=== PATIENT | female | born 1955 | race Caucasian/White ===

== ENCOUNTER 2016-12-30 10:24 | Emergency (ER) | payer MEDICARE ==
[~2016-12-30] VITALS: Ht 170.2 cm; Wt 99.8 kg
[~2016-12-30 10:24] MED LIST: HYDR25TA4 PO
--- NOTE | 2016-12-30 12:27 | ED Chest Pain ---
General Chief Complaint: Chest Pain Stated Complaint: N/V, ARM PAIN, CHEST DISCOMFORT A MONTH AGO Nursing Triage Note: pt reports cp/pressure and "body inflammation" on and off for one month. Pt reports recently she has become more soa and fatigued. Pt also reports l arm and neck pain this am. Pt states she does not take her blood pressure medication regularly. Nursing Sepsis Screen: No Definite Risk History of Present Illness Time seen by provider: 12:25 Initial Comments Patient complains of general lysed myalgias and arthralgias. She reports occasional left-sided neck pain. More recently she is noted fatigue and shortness of air. Timing/Duration: intermittent Severity/Quality: mild ASA po SCHOLARSHIP COUNSELOR: No Associated Symptoms: fatigue, shortness of breath Allergies and Home Medications Allergies Coded Allergies: No Known Drug Allergies (Verified , 02/19/15) Home Medications Hydrochlorothiazide 25 Mg Tablet, 25 MG PO DAILY, (Reported) Review of Systems Constitutional: no symptoms reported, see HPI EENTM: No Symptoms Reported, See HPI Respiratory: See HPI, SOA With Exertion, Denies SOA at Rest Cardiovascular: See HPI, Chest Pain Gastrointestinal: No Symptoms Reported, See HPI Genitourinary: No Symptoms Reported, See HPI Musculoskeletal: see HPI, joint pain (generalized), muscle pain Skin: no symptoms reported, see HPI Psychiatric/Neurological: No Symptoms Reported, See HPI Endocrine: No Symptoms Reported, See HPI Hematologic/Lymphatic: No Symptoms Reported, See HPI All Other Systems Reviewed Negative Unless Noted: Yes Past Mrsywzh-Pvuser-Mkrpvj Hx Patient Social History Alcohol Use: Denies Use Recreational Drug Use: No Smoking Status: Former Smoker Recent Foreign Travel: No Contact w/Someone Who Travel: No Recent Infectious Disease Expo: No Recent Hopitalizations: No Seasonal Allergies Seasonal Allergies: No Respiratory Hx Respiratory Disorders: No Cardiovascular Hx Cardiac Disorders: No Cardiac Disorders: Chronic Edema/Swelling, Hypertension Neurological Hx Neurological Disorders: No Gastrointestinal Hx Gastrointestinal Disorders: No Musculoskeletal Hx Musculoskeletal Disorders: Yes (ARTHRITIS) Endocrine Hx Endocrine Disorders: No Reviewed Nursing Assessment Reviewed/Agree w Nursing PMH: Yes Physical Exam Vital Signs Vital Sign - Last 12Hours 12/30/16 12/30/16 12:04 12:35 Temp 97.9 Pulse 61 Resp 18 B/P (MAP) 167/89 Pulse Ox 98 O2 Delivery Room Air Capillary Refill : Less Than 3 Seconds General Appearance: No Apparent Distress, WD/WN HEENT: PERRL/EOMI, TMs Normal, Normal ENT Inspection, Pharynx Normal Neck: Full Range of Motion, Normal Inspection, Non Tender, Supple Respiratory: Chest Non Tender, Lungs Clear, Normal Breath Sounds Cardiovascular: Regular Rate, Rhythm, No Edema, No Murmur, Normal Peripheral Pulses Gastrointestinal: Normal Bowel Sounds, Non Tender, Soft Extremity: Normal Capillary Refill, Normal Inspection, Normal Range of Motion, No Calf Tenderness, No Pedal Edema Neurologic/Psychiatric: Alert, Oriented x3, No Motor/Sensory Deficits, Normal Mood/Affect Skin: Normal Color, Warm/Dry Progress/Results/Core Measures Results/Orders Lab Results Laboratory Tests Test 12/30/16 12:46 Range/Units White Blood Count 7.1 4.3-11.0 10^3/uL Red Blood Count 4.76 4.35-5.85 10^6/uL Hemoglobin 14.7 11.5-16.0 G/DL Hematocrit 42 35-52 % Mean Corpuscular Volume 88 80-99 FL Mean Corpuscular Hemoglobin 31 25-34 PG Mean Corpuscular Hemoglobin Concent 35 32-36 G/DL Red Cell Distribution Width 12.7 10.0-14.5 % Platelet Count 234 130-400 10^3/uL Mean Platelet Volume 9.6 7.4-10.4 FL Neutrophils (%) (Auto) 66 42-75 % Lymphocytes (%) (Auto) 25 12-44 % Monocytes (%) (Auto) 6 0-12 % Eosinophils (%) (Auto) 2 0-10 % Basophils (%) (Auto) 1 0-10 % Neutrophils # (Auto) 4.7 1.8-7.8 X 10^3 Lymphocytes # (Auto) 1.8 1.0-4.0 X 10^3 Monocytes # (Auto) 0.4 0.0-1.0 X 10^3 Eosinophils # (Auto) 0.2 0.0-0.3 10^3/uL Basophils # (Auto) 0.1 0.0-0.1 10^3/uL Prothrombin Time 11.9 L 12.2-14.7 SEC INR Comment 0.9 0.8-1.4 Activated Partial Thromboplast Time 28 24-35 SEC Sodium Level 140 135-145 MMOL/L Potassium Level 3.9 3.6-5.0 MMOL/L Chloride Level 106 98-107 MMOL/L Carbon Dioxide Level 26 21-32 MMOL/L Anion Gap 8 5-14 MMOL/L Blood Urea Nitrogen 16 7-18 MG/DL Creatinine 0.83 0.60-1.30 MG/DL Estimat Glomerular Filtration Rate > 60 BUN/Creatinine Ratio 19 Glucose Level 124 H 70-105 MG/DL Calcium Level 9.6 8.5-10.1 MG/DL Magnesium Level 2.4 1.8-2.4 MG/DL Total Bilirubin 0.4 0.1-1.0 MG/DL Aspartate Amino Transf (AST/SGOT) 21 5-34 U/L Alanine Aminotransferase (ALT/SGPT) 22 0-55 U/L Alkaline Phosphatase 70 40-136 U/L Myoglobin 34.6 10.0-92.0 NG/ML Troponin I < 0.30 <0.30 NG/ML Total Protein 7.6 6.4-8.2 GM/DL Albumin 4.4 3.2-4.5 GM/DL My Orders Orders - ROCHELLE HERRERA Cbc With Automated Diff (12/30/16 12:17) Magnesium (12/30/16 12:17) Chest 1 View, Ap/Pa Only (12/30/16 12:17) Ekg Tracing (12/30/16 12:17) Cardiac Profile 1 (12/30/16 12:17) Comprehensive Metabolic Panel (12/30/16 12:17) Myoglobin Serum (12/30/16 12:17) Protime With Inr (12/30/16 12:17) Partial Thromboplastin Time (12/30/16 12:17) Aspirin Chewable Tablet (Baby Aspirin Ch (12/30/16 12:30) Saline Lock/Iv-Start (12/30/16 12:17) Ondansetron Injection (Zofran Injectio (12/30/16 12:30) Naproxen Tablet (Naprosyn Tablet) (12/30/16 13:09) Medications Given in ED Current Medications Medications Dose Ordered Sig/Mohamud Route Start Time Stop Time Status Last Admin Dose Admin Aspirin 324 mg ONCE ONCE PO 12/30/16 12:30 12/30/16 12:31 DC 12/30/16 12:31 324 MG Ondansetron HCl 4 mg ONCE ONCE IVP 12/30/16 12:30 12/30/16 12:31 DC 12/30/16 12:32 4 MG Vital Signs/I&O Vital Sign - Last 12Hours 12/30/16 12/30/16 12/30/16 12:04 12:35 14:01 Temp 97.9 97.9 Pulse 61 58 Resp 18 18 B/P (MAP) 167/89 Pulse Ox 98 99 O2 Delivery Room Air Room Air Blood Pressure Mean: 115 Progress Note : Time: 12:25 Progress Note Initial evaluation completed, EKG essentially normal. Aspirin 324 mg chewable given. 1250 labs all essentially normal hemoglobin 14.7, hematocrit 42, troponin less than 0.30. Zofran 4 mg IV and nausea. 1300 patient reports nausea is improved. Like to try NSAID, Naproxen 500 mg by mouth 1345 patient reports to be feeling much better. Blood pressure has improved. Discussed plans for discharge to home. Patient agreed with this treatment plan. ECG Initial ECG Impression Date: Dec 30, 2016 Initial ECG Impression Time: 11:46 Initial ECG Rate: 56 Initial ECG Rhythm: Normal Sinus Initial ECG Intervals: Normal Initial ECG Intervals NE 216, QRSD 96, QT 444, QTc 429. Leighton P 44, QRS 50, T 2 Initial ECG Impression: Normal Initial ECG Comparisson: No Previous ECG Available Comment EKG reviewed with Dr. Hamm who agreed with interpretation. Diagnostic Imaging Diagonstic Imaging: Xray Plain Films/CT/US/NM/MRI: chest Comments NAME: NAYAN KIDD [facility] REC#: [id number] PT STATUS: DEP ER : 1955 PHYSICIAN: ROCHELLE HERRERA ADMIT DATE: 12/30/16/ER Signed Date of Exam: 12/30/16 CHEST 1 VIEW, AP/PA ONLY EXAMINATION: Portable upright radiograph of the chest. INDICATION: Left arm and leg weakness and numbness. Chest pain. FINDINGS: The lungs are hyperinflated. The heart size is normal. No effusion or pneumothorax. The mediastinum and christian appear unremarkable. IMPRESSION: Hyperinflated clear lungs. Dictated by: Dictated on workstation # [id number] Dict: 12/30/16 1258 Trans: 12/30/16 1558 Interpreted by: ENEIDA ODEN MD Electronically signed by: ENEIDA ODEN MD 12/30/16 1558 Departure Impression Impression: Primary Impression: Hypertension Qualified Codes: I10 - Essential (primary) hypertension Additional Impression: Myalgia Disposition: HOME, SELF-CARE Condition: Improved Departure-Patient Inst. [facility] Primary Care Physician Patient Instructions: High Blood Pressure (DC), Muscle and Bone Pain (DC) Add. Discharge Instructions: Follow-up with Kristy Santacruz APRN for continued symptoms and to discuss changes with blood pressure medication. Use Aleve 2 tablets twice a day with food for general inflammation, joint pain and discomfort. Activity as tolerated. Return to emergency department for chest pain, shortness of breath, or other concerns. All discharge instructions reviewed with patient and/or family. Voiced understanding. Copy Copies To 1: EVANGELIST TRUONG MD, AMY ARNP Dec 30, 2016 12:27
[2016-12-30] MEDS ORDERED: ONDANSETRON 4 MG/2 ML (SDV) Z0FRAN IVP ONE (12:30)
[2016-12-30] MEDS ORDERED: ASPIRIN 81 MG CHEW (CHILDREN'S ASA) PO ONE (12:30)
[2016-12-30 13:03] LABS: INR 0.9 (0.8-1.4); PROTHROMBIN TIME PATIENT 11.9 SEC (12.2-14.7)
--- NOTE | 2016-12-30 13:03 | Diagnostic Imaging Report ---
EXAMINATION: Portable upright radiograph of the chest. INDICATION: Left arm and leg weakness and numbness. Chest pain. FINDINGS: The lungs are hyperinflated. The heart size is normal. No effusion or pneumothorax. The mediastinum and christian appear unremarkable. IMPRESSION: Hyperinflated clear lungs. Dictated by: Dictated on workstation # [id number]
[2016-12-30] MEDS ORDERED: NAPROXEN 250 MG (NAPROSYN) TABLET PO STA (13:09)
[2016-12-30 13:12] LABS: ALANINE AMINOTRANSFERASE 22 U/L (0-55); ALBUMIN 4.4 GM/DL (3.2-4.5); ANION GAP 8 MMOL/L (5-14); ASPARTATE AMINO TRANSFERASE 21 U/L (5-34); BILIRUBIN,TOTAL 0.4 MG/DL (0.1-1.0); BLOOD UREA NITROGEN 16 MG/DL (7-18); BUN/CREATININE RATIO 19; CALCIUM 9.6 MG/DL (8.5-10.1); CARBON DIOXIDE 26 MMOL/L (21-32); CHLORIDE 106 MMOL/L (98-107); CREATININE SERUM 0.83 MG/DL (0.60-1.30); GFR ESTIMATED > 60; GLUCOSE 124 MG/DL (70-105); MAGNESIUM 2.4 MG/DL (1.8-2.4); POTASSIUM 3.9 MMOL/L (3.6-5.0); SODIUM 140 MMOL/L (135-145); TOTAL PROTEIN 7.6 GM/DL (6.4-8.2)
[2016-12-30 13:13] LABS: BASOPHILS # (AUTO) 0.1 10^3/uL (0.0-0.1); BASOPHILS % (AUTO) 1 % (0-10); EOSINOPHILS # (AUTO) 0.2 10^3/uL (0.0-0.3); EOSINOPHILS % (AUTO) 2 % (0-10); LYMPHOCYTES # (AUTO) 1.8 X 10^3 (1.0-4.0); LYMPHOCYTES % (AUTO) 25 % (12-44); MEAN CORPUSCULAR HEMOGLOBIN 31 PG (25-34); MEAN CORPUSCULAR HGB CONC 35 G/DL (32-36); MEAN CORPUSCULAR VOLUME 88 FL (80-99); MEAN PLATELET VOLUME 9.6 FL (7.4-10.4); MONOCYTES # (AUTO) 0.4 X 10^3 (0.0-1.0); MONOCYTES % (AUTO) 6 % (0-12); NEUTROPHILS # (AUTO) 4.7 X 10^3 (1.8-7.8); NEUTROPHILS % (AUTO) 66 % (42-75); PLATELET COUNT 234 10^3/uL (130-400); RED BLOOD COUNT 4.76 10^6/uL (4.35-5.85); RED CELL DISTRIBUTION WIDTH 12.7 % (10.0-14.5); WHITE BLOOD COUNT 7.1 10^3/uL (4.3-11.0)
[2016-12-30 13:19] LABS: MYOGLOBIN SERUM 34.6 NG/ML (10.0-92.0)
[2016-12-30 14:01] VITALS: BP 132/70
--- OUTSIDE RECORDS SUMMARY | 2016-12-30 18:04 | XMS REPORT ---
Author Author ADRIÁN SHARP Organization [employer] Address Unknown Phone Unavailable Care Team Providers Care Fmd Teacher Name Role Phone ADRIÁN SHARP CP Unavailable Allergies No Known Allergies Problems Problem Type Condition Code Onset Dates Condition Status Problem Essential hypertension, benign 401.1 Active Problem Abdominal pain, unspecified site 789.00 Active Problem Pain in joint, lower leg 719.46 Active Problem Leg pain 729.5 Active Problem Need for prophylactic vaccination and inoculation, Influenza V04.81 Active Problem Hypertension 401.9 Active Problem DTAP TEST V06.1 Active Problem Special screening for malignant neoplasms, colon V76.51 Active Problem Hordeolum externum 373.11 Active Problem Pain in joint, site unspecified 719.40 Active Problem Acute sinusitis, unspecified 461.9 Active Problem Special screening examination, human papillomavirus [HPV] V73.81 Active Problem Diverticulitis of colon (without mention of hemorrhage) 562.11 Active Problem Celiac disease 579.0 Active Problem Routine gynecological examination V72.31 Active Problem Screening for malignant neoplasm of the cervix V76.2 Active Problem Unspecified breast screening V76.10 Active Problem Nondependent tobacco use disorder 305.1 Active Problem Other specified counseling V65.49 Active Problem Other emphysema 492.8 Active Medications No Known Medications Results No Known Results Summary Purpose eClinicalWorks Submission
--- OUTSIDE RECORDS SUMMARY | 2016-12-30 18:05 | XMS REPORT ---
Author LILLI Hogue [facility] [employer] Address Unknown Phone Unavailable Care Team Providers Care Associate Account Manager Name Role Phone LILLI MCBRIDE CP Unavailable Allergies, Adverse Reactions, Alerts Substance Reaction Event Type Lisinopril cough Drug Allergy Metoprolol Info Not Available Drug Allergy Gluten abd pain Non Drug Allergy Problems Problem Type Condition Code Onset Dates Condition Status Assessment Common wart B07.8 Active Problem Diverticulitis of colon (without mention of hemorrhage) 562.11 Active Problem DTAP TEST V06.1 Active Problem Celiac disease 579.0 Active Problem Pain in joint, site unspecified 719.40 Active Problem Acute sinusitis, unspecified 461.9 Active Problem Hordeolum externum 373.11 Active Problem Chronic hepatitis C without hepatic coma B18.2 Active Problem Need for prophylactic vaccination and inoculation, Influenza V04.81 Active Problem Arthralgia, unspecified joint M25.50 Active Problem Fatigue, unspecified type R53.83 Active Problem Other specified counseling V65.49 Active Problem Unspecified breast screening V76.10 Active Problem Myalgia M79.1 Active Problem Special screening examination, human papillomavirus [HPV] V73.81 Active Problem Hypertension 401.9 Active Problem Leg pain 729.5 Active Problem Tick bite, sequela W57.XXXS Active Problem Exposure to hepatitis C Z20.5 Active Problem Nondependent tobacco use disorder 305.1 Active Problem Other emphysema 492.8 Active Problem Routine gynecological examination V72.31 Active Problem Screening for malignant neoplasm of the cervix V76.2 Active Problem Abdominal pain, unspecified site 789.00 Active Problem Special screening for malignant neoplasms, colon V76.51 Active Problem Essential hypertension, benign 401.1 Active Problem Pain in joint, lower leg 719.46 Active Medications Medication Code System Code Instructions Start Date End Date Status Dosage Sudafed [facility] [address]-98 60 mg Orally every 6 hrs Mar 12, 2014 1 tablet as needed Ibuprofen [facility] [address]-76 200 MG Orally every 6 hrs as needed 4 tablets Neurontin [facility] [address]-14 100 MG Orally Jun 10, 2015 start at bedtime and then may go twice a day after 4 days Larisaoni [facility] [address]-43 90-400 MG Orally Once a day 1 tablet Nexium [facility] [address]-54 40 MG Orally Once a day 1 capsule Procedures Procedure Coding System Code Date [facility] VISIT ESTABLISHED PATIENT CPT-4 G0467 Apr 28, 2016 Office Visit, Est Pt., Level 2 CPT-4 30465 Apr 28, 2016 DESTRUCT LESION, 1-14 CPT-4 04792 Apr 28, 2016 Vital Signs Date/Time: Apr 28, 2016 Cardiac Monitoring Heart Rate 70 bpm Weight 221 lbs Height 68 in BMI 33.60 Index Blood Pressure Diastolic 82 mmHg Blood Pressure Systolic 130 mmHg Results Name Result Date Reference Range Unit Abnormality Flag WART DESTRUCT 1-14 (CRYO) Summary Purpose eClinicalWorks Submission
--- OUTSIDE RECORDS SUMMARY | 2016-12-30 18:05 | XMS REPORT ---
Author Author BENJAMIN DAMON Organization [employer] Address Unknown Phone Unavailable Care Team Providers Care Melangeur Operator Name Role Phone BENJAMIN DAMON CP Unavailable Allergies No Known Allergies Problems [...]
--- OUTSIDE RECORDS SUMMARY | 2016-12-30 18:05 | XMS REPORT ---
Author Author ADRIÁN SHARP Organization [employer] Address Unknown Phone Unavailable Care Team Providers Care Refund Clerk Name Role Phone ADRIÁN SHARP CP Unavailable Allergies, Adverse Reactions, Alerts Substance Reaction Event Type Metoprolol Info Not Available Drug Allergy Gluten abd pain Non Drug Allergy Accuretic 20-25 Mg Tablet MADE PT COUGH...GB Non Drug Allergy Problems Problem Type Condition Code Onset Dates Condition Status Problem Essential hypertension, benign 401.1 Active Problem Abdominal pain, unspecified site 789.00 Active Problem Pain in joint, lower leg 719.46 Active Problem Leg pain 729.5 Active Assessment Spider bite, accidental or unintentional, initial encounter T63.301A Active Problem Need for prophylactic vaccination and inoculation, Influenza V04.81 Active Assessment Right knee pain M25.561 Active Assessment Essential hypertension I10 Active Problem Hypertension 401.9 Active Problem DTAP [...] Active Problem Other emphysema 492.8 Active Medications Medication Code System Code Instructions Start Date End Date Status Dosage Chlorthalidone [facility] [address]-96 25 MG Orally 2 times a day 1 tablet in the morning Bactrim DS [facility] [address]-10 800-160 MG Orally 2 times a day Apr 11, 2015 Apr 21, 2015 1 tablet Nexium [facility] [address]-81 40 MG Orally Once a day 1 capsule Procedures Procedure Coding System Code Date Office Visit, Est Pt., Level 3 CPT-4 97531 Apr 11, 2015 [facility] CPT-4 NOBLL Apr 11, 2015 [facility] VISIT ESTABLISHED PATIENT CPT-4 G0467 Apr 11, 2015 VENIPUNCT, ROUTINE* CPT-4 81399 Apr 11, 2015 Vital Signs Date/Time: Apr 11, 2015 Temperature 97.8 F Weight 218 lbs Height 68 in BMI 33.14 Index Blood Pressure Diastolic 72 mmHg Blood Pressure Systolic 134 mmHg Cardiac Monitoring Heart Rate 70 bpm Results Name Result Date Reference Range Unit Abnormality Flag ROUTINE VENIPUNCTURE Summary Purpose eClinicalWorks Submission
--- OUTSIDE RECORDS SUMMARY | 2016-12-30 18:05 | XMS REPORT ---
Author Author ADRIÁN SHARP [facility] Address [address] [place] [address] Care Team Providers Care Roaster Helper Name Role Phone ADRIÁN SHARP Unavailable PROBLEMS Type Condition ICD9-CM Code WKE72-HL Code Onset Dates Condition Status SNOMED Code Problem Diverticulitis of colon (without mention of hemorrhage) 562.11 Active 355727884 Problem Celiac disease 579.0 Active 134604779 Problem Pain in joint, site unspecified 719.40 Active 73982737 Problem Acute sinusitis, unspecified 461.9 Active 05410888 Problem Hordeolum externum 373.11 Active 6949834 Problem Special screening examination, human papillomavirus [HPV] V73.81 Active 889978127 Problem Need for prophylactic vaccination and inoculation, Influenza V04.81 Active 218103780 Problem Leg pain 729.5 Active 41387267 Problem Chronic hepatitis C without hepatic coma B18.2 Active 681991087 Problem Myalgia M79.1 Active 29019943 Problem Arthralgia, unspecified joint M25.50 Active 11856151 Problem Routine gynecological examination V72.31 Active 510225917607754 Problem Other specified counseling V65.49 Active 573417221 Problem Unspecified breast screening V76.10 Active 522938726 Problem Exposure to hepatitis C Z20.5 Active 307202742 Problem Hypertension 401.9 Active 42346835 Problem Fatigue, unspecified type R53.83 Active 60425705 Problem Tick bite, sequela W57.XXXS Active 60923411 Problem Other emphysema 492.8 Active 79810032 Problem Essential hypertension, benign 401.1 Active 1312928 Problem Screening for malignant neoplasm of the cervix V76.2 Active 214122891 Problem Nondependent tobacco use disorder 305.1 Active 027155083 Problem Special screening for malignant neoplasms, colon V76.51 Active 295546926 Problem DTAP TEST V06.1 Active Problem Pain in joint, lower leg 719.46 Active 407190257 Problem Abdominal pain, unspecified site 789.00 Active 67114649 ALLERGIES No Known Allergies SOCIAL HISTORY No smoking Hx information available PLAN OF CARE VITAL SIGNS MEDICATIONS Medication Instructions Dosage Frequency Start Date End Date Duration Status Sudafed 60 mg Orally every 6 hrs 1 tablet as needed 6h 15 Feb, 2014 Active RESULTS No Results PROCEDURES No Known procedures IMMUNIZATIONS No Known Immunizations
--- OUTSIDE RECORDS SUMMARY | 2016-12-30 18:05 | XMS REPORT ---
Author Author ADRIÁN SHARP Organization [employer] Address Unknown Phone Unavailable Care Team Providers Care Service Desk Team Lead Name Role Phone ADRIÁN SHARP CP Unavailable Allergies No Known Allergies Problems Problem Type Condition Code Onset Dates Condition Status Problem Diverticulitis of colon (without mention of [...] in joint, lower leg 719.46 Active Medications No Known Medications Results No Known Results Summary Purpose eClinicalWorks Submission
--- OUTSIDE RECORDS SUMMARY | 2016-12-30 18:05 | XMS REPORT ---
Author Author ADRIÁN SHARP Organization [employer] Address Unknown Phone Unavailable Care Team Providers Care Wood Boring Machine Operator Name Role Phone ADRIÁN SHARP CP Unavailable [...]
--- OUTSIDE RECORDS SUMMARY | 2016-12-30 18:05 | XMS REPORT ---
Author Author ADRIÁN SHARP Organization [employer] Address Unknown Phone Unavailable Care Team Providers Care Sewer Bricklayer Name Role Phone ADRIÁN SHARP CP Unavailable [...] Active Problem Leg pain 729.5 Active Assessment Foot pain, unspecified laterality M79.673 Active Problem Need for prophylactic vaccination and inoculation, Influenza V04.81 Active Assessment Left knee pain M25.562 Active Assessment Viral warts, unspecified type B07.9 Active Problem Hypertension 401.9 Active Problem DTAP [...] Instructions Start Date End Date Status Dosage Nexium [facility] [address]-08 40 MG Orally Once a day 1 capsule Neurontin [facility] [address]-11 100 MG Orally Jun 10, 2015 start at bedtime and then may go twice a day after 4 days Chlorthalidone [facility] [address]-40 25 MG Orally 2 times a day 1 tablet in the morning Procedures Procedure Coding System Code Date Office Visit, Est Pt., Level 3 CPT-4 92032 Jun 10, 2015 [facility] VISIT ESTABLISHED PATIENT CPT-4 G0467 Jun 10, 2015 Vital Signs Date/Time: Jun 10, 2015 Temperature 98.2 F Weight 218.6 lbs Height 68 in BMI 33.23 Index Blood Pressure Diastolic 86 mmHg Blood Pressure Systolic 116 mmHg Cardiac Monitoring Heart Rate 68 bpm Results No Known Results Summary Purpose eClinicalWorks Submission
--- OUTSIDE RECORDS SUMMARY | 2016-12-30 18:05 | XMS REPORT ---
Author Author ADRIÁN SHARP Organization [employer] Address Unknown Phone Unavailable Care Team Providers Care Civil Engineering Technician Name Role Phone ADRIÁN SHARP CP Unavailable [...]
--- OUTSIDE RECORDS SUMMARY | 2016-12-30 18:06 | XMS REPORT ---
Author Author ADRIÁN SHARP Organization [employer] Address Unknown Phone Unavailable Care Team Providers Care Grinder Set Up Operator Universal Name Role Phone ADRIÁN SHARP CP Unavailable Allergies, Adverse Reactions, Alerts Substance Reaction Event Type Lisinopril cough Drug Allergy Metoprolol Info Not Available Drug Allergy Gluten abd pain Non Drug Allergy Problems Problem Type Condition Code Onset Dates Condition Status Assessment Viral warts, unspecified type B07.9 Active Problem Diverticulitis of colon (without mention [...] Start Date End Date Status Dosage Sudafed [facility] [address]-63 60 mg Orally every 6 hrs Mar 12, 2014 1 tablet as needed Ibuprofen [facility] [address]-34 200 MG Orally every 6 hrs as needed 4 tablets Neurontin [facility] [address]-31 100 MG Orally Jun 10, 2015 start at bedtime and then may go twice a day after 4 days Cephalexin [facility] [address]-70 500 MG Orally tid Apr 20, 2016 Apr 30, 2016 1 capsule Harvoni [facility] [address]-96 90-400 MG Orally Once a day 1 tablet Nexium [facility] [address]-25 40 MG Orally Once a day 1 capsule Procedures Procedure Coding System Code Date Office Visit, Est Pt., Level 3 CPT-4 52654 Apr 20, 2016 [facility] VISIT ESTABLISHED PATIENT CPT-4 G0467 Apr 20, 2016 Vital Signs Date/Time: Apr 20, 2016 Cardiac Monitoring Heart Rate 72 bpm Weight 223.4 lbs Height 68 in BMI 33.96 Index Blood Pressure Diastolic 90 mmHg Blood Pressure Systolic 134 mmHg Results No Known Results Summary Purpose eClinicalWorks Submission
--- OUTSIDE RECORDS SUMMARY | 2016-12-30 18:06 | XMS REPORT ---
Author Author ADRIÁN SHARP Organization [employer] Address Unknown Phone Unavailable Care Team Providers Care Blasting Entry Specialist Name Role Phone ADRIÁN SHARP CP Unavailable Allergies No Known Allergies Problems Problem Type Condition Code Onset Dates Condition Status Assessment Chronic hepatitis C without hepatic coma B18.2 Active Problem Diverticulitis of colon (without mention [...] leg 719.46 Active Medications No Known Medications Procedures Procedure Coding System Code Date VENIPUNCT, ROUTINE* CPT-4 12925 Apr 17, 2016 HEP C RNA QUANT ([facility] ONLY) CPT-4 18560 Apr 17, 2016 Results Name Result Date Reference Range Unit Abnormality Flag ROUTINE VENIPUNCTURE Summary Purpose eClinicalWorks Submission
== END 2016-12-30 14:01 | disposition home or self-care (01) ==
LOC: EDUNIT# 10:24 → ER 10:27
DX: M79.1 Myalgia (principal); I10 Essential (primary) hypertension; M19.90 Unspecified osteoarthritis, unspecified site; Z87.891 Personal history of nicotine dependence
CPT/HCPCS: 36415; 71010; 80053; 83735; 83874; 84484; 85025; 85610; 85730; 93005; 96374

== ENCOUNTER → 2017-01-07 | Outpatient (CLI) | payer MEDICARE ==
--- NOTE | 2017-01-07 09:19 | Diagnostic Imaging Report ---
PROCEDURE: US Gallbladder. TECHNIQUE: Multiple real-time grayscale images were obtained over the right upper quadrant in various projections. INDICATION: Nausea and abdominal pain. Liver has increased echogenicity suggesting fatty infiltration. Gallbladder is clear with no stones or wall thickening. The common duct is not dilated. Pancreas is obscured by bowel gas. Right kidney appear normal. There is no ascites. IMPRESSION: Increased renal parenchymal echogenicity consistent with hepatic steatosis. The gallbladder appear grossly normal. Dictated by: Dictated on workstation # [id number]
== END ==
LOC: RAD 08:26
PROVIDERS: ATTEND Internal Medicine
DX: G43.A0 Cyclical vomiting, in migraine, not intractable (principal); K76.9 Liver disease, unspecified
CPT/HCPCS: 76705

== ENCOUNTER → 2018-06-22 | Emergency (ER) | payer MEDICARE ==
[~2018-06-22] VITALS: Ht 172.7 cm; Wt 101.6 kg
[~2018-06-22] MED LIST changes: +LACTATED RINGERS 1,000 ML IV SCH; +NS IV 1000 ML 1,000 ML IV SCH; +ONDANSETRON 4 MG/2 ML (SDV) Z0FRAN IVP ONE; +ONDN4T PO
[2018-06-22 14:34] VITALS: BP 147/84
--- OUTSIDE RECORDS SUMMARY | 2018-06-22 15:09 | XMS REPORT ---
Author Author ADRIÁN SHARP Organization [facility] [place] [facility] Address [address] [place] [address] Care Team Providers Care Spout Positioner Name Role Phone ADRIÁN SHARP Unavailable PROBLEMS Type Condition ICD9-CM Code RHE91-WK Code Onset Dates Condition Status SNOMED Code Problem Myalgia M79.1 Active 15466829 Problem Fatigue, unspecified type R53.83 Active 44668132 Problem Exposure to hepatitis C Z20.5 Active 157246165 Problem Chronic hepatitis C without hepatic coma B18.2 Active 628521296 Problem Tick bite, sequela W57.XXXS Active 65848729 Problem Seasonal allergic rhinitis due to pollen J30.1 Active 14611380 Problem Vasomotor rhinitis J30.0 Active 2023280 Problem Non-intractable cyclical vomiting with nausea G43.A0 Active 02783128 Problem Arthralgia, unspecified joint M25.50 Active 24728787 Problem Chronic fatigue R53.82 Active 91114867 Problem Essential hypertension I10 Active 01901803 ALLERGIES Substance Reaction Event Type Date Status Lisinopril cough Drug Allergy Mar, Active Metoprolol Unknown Drug Allergy Mar, Active Gluten abd pain Non Drug Allergy Mar, Active ENCOUNTERS Encounter Location Date Diagnosis [facility] [place] [facility] [id number] [place] [address] Mar, Essential hypertension I10 ; Encounter for immunization Z23 ; Seasonal allergic rhinitis due to pollen J30.1 and Screening mammogram, encounter for Z12.31 [facility] [place] [facility] [id number] [place] [address] Jan, [facility] [place] [facility] [address] [address] Jan, Essential hypertension I10 [facility] [id number] [place] [address] Aug, Bronchitis J40 ; Acute pharyngitis, unspecified etiology J02.9 and Vasomotor rhinitis J30.0 [place] [address] [address] Jun, Chronic fatigue R53.82 ; Weight gain R63.5 ; Acne, unspecified acne type L70.9 and Snoring R06.83 [place] [address] [address] Apr, Chronic hepatitis C without hepatic coma B18.2 [place] [address] [address] Feb, Chronic hepatitis C without hepatic coma B18.2 [place] [address] [address] Feb, Allergy, initial encounter T78.40XA [place] [address] [address] 13 Feb, 2017 Chronic hepatitis C without hepatic coma B18.2 [place] [address] [address] Dec, Non-intractable cyclical vomiting with nausea G43.A0 ; Essential hypertension I10 and Allergy, initial encounter T78.40XA [place] [address] [address] 14 Sep, 2016 Chronic hepatitis C without hepatic coma B18.2 [place] [address] [place] [id number] [place] [address]- [address] Sep, [place] [address] [address] Apr, Common wart B07.8 [place] [address] [address]- [address] Mar, Viral warts, unspecified type B07.9 [place] [address] [address] Mar, [facility] [place] [facility] [address] [address] Mar, Chronic hepatitis C without hepatic coma B18.2 [facility] [place] [facility] [address] [address] Feb, [facility] [place] [facility] [address] [place] [id number] [place] [address]- [address] Feb, Chronic hepatitis C without hepatic coma B18.2 [facility] [place] [facility] [id number] [place] [address]- [address] Feb, Plantar fasciitis, bilateral M72.2 [facility] [place] [facility] [id number] [place] [address]- [address] Dec, [facility] [place] [facility] [address] [place] [id number] [place] [address]- [address] Dec, [facility] [place] [facility] [id number] [place] [address]- [address] Nov, Pain of left foot M79.672 ; Pain in right foot M79.671 and Tick bite, sequela W57.XXXS [facility] [facility] [address] [address] Nov, Pain of left foot M79.672 ; Pain in right foot M79.671 and Tick bite, sequela W57.XXXS [facility] [facility] [address] [address] Nov, Chronic hepatitis C without hepatic coma B18.2 [facility] [place] [facility] [address] [address] Nov, Chronic hepatitis C without hepatic coma B18.2 [facility] [place] [facility] [address] [address] Nov, [facility] [place] [facility] [address] [place] [id number] [place] [address] Nov, Myalgia M79.1 ; Arthralgia, unspecified joint M25.50 ; Fatigue, unspecified type R53.83 ; Tick bite, sequela W57.XXXS and Exposure to hepatitis C Z20.5 [place] [address] [place] [id number] [place] [address] October, [address] [address] May, Foot pain, unspecified laterality M79.673 ; Left knee pain M25.562 and Viral warts, unspecified type B07.[address] [address]- [address] Mar, [address] [address]- [address] Mar, Spider bite, accidental or unintentional, initial encounter T63.301A ; Right knee pain M25.561 and Essential hypertension I10 [address] [address] Mar, [address] [address] Dec, Abdominal pain 789.00 and Hemangioma 228.[address] [address]- [address] Nov, Leg pain 729.5 ; Plantar fasciitis 728.71 and Hypertension 401.9 [place] [address] [address] Nov, [address] [address]- [address] October, [place] [address] [address] October, [place] [address] [address]- [address] Sep, [facility] [place] [facility] [address] [id number] [place] [address] Sep, [facility] [place] [facility] [address] [id number] [place] [address] Aug, [facility] [place] [facility] [address] [id number] [place] [address] Aug, [facility] [place] [facility] [address] [id number] [place] [address] Jul, [facility] [place] [facility] [address] [id number] [place] [address]- [address]679 Jul, [facility] [place] [facility] [address] [id number] [place] [address]- 2983 Jun, [facility] [place] [facility] [address] [id number] [place] [address]- 8[address] Jun, [facility] [place] [facility] [address] [id number] [place] [address]- [address] Jun, [facility] [place] [facility] [address] [id number] [place] [address]- [address]407 Jun, [facility] [place] [facility] [address] [id number] [place] [address]- 9682 Jun, [facility] [place] [facility] [address] [id number] [place] [address]- 3[address] Jun, [facility] [place] [facility] [address] [id number], [place] [address] 16 Jun, 2014 [facility] [place] [facility] [address] [id number] [place] [address]- 8101 Jun, [facility] [place] [facility] [address] [id number] [place] [address]- 8395 Jun, [facility] [place] [facility] [address] [id number] [place] [address]- 235[address] 14 Jun, 2014 [facility] [place] [facility] [address] [id number], [place] [address] Jun, [facility] [place] [facility] [address] [id number] [place] [address]- 9924 Jun, [facility] [place] [facility] [address] [id number] [place] [address] Jun, [facility] [place] [facility] [address] [id number] [place] [address]- 2709 May, [facility] [place] [facility] [address] [id number] [place] [address]- 70[address] May, [facility] [place] [facility] [address] [id number] [place] [address]- 9053 May, [facility] [place] [facility] [address] [id number] [place] [address]- 30[address] Feb, [facility] [place] [facility] [address] [id number] [place] [address]- 3036 Feb, [facility] [place] [facility] [address] [id number] [place] [address]- 5096 Jan, [facility] [place] [facility] [address] [id number] [place] [address]- 4717 Jan, [facility] [place] [facility] [address] [id number] [place] [address]- 1122 Dec, [facility] [place] [facility] [address] [id number] [place] [address]- 9942 Dec, [facility] [place] [facility] [address] [id number] [place] [address]- 6058 May, [facility] [place] [facility] [address] [id number] [place] [address] May, [facility] [place] [facility] [address] [id number] [place] [address]- 0[address] Sep, [facility] [place] [facility] [address] [id number] [place] [address]- 6368 Jul, [facility] [place] [facility] [address] [place] [address]- [address] 14 Jul, 2012 [facility] [place] [facility] [address] [place] [address]- [address] May, [facility] [place] [facility] [address], [place] [address]- [address] May, [facility] [place] [facility] [address] [place] [address]- [address] May, [facility] [place] [facility] [address] [place] [address]- [address] Mar, [facility] [place] [facility] [id number] [place] [address]- 8086 Feb, [facility] [place] [facility] [address], [place] [address]- 8[address] Dec, [facility] [place] [facility] [address] [place] [address]- [address] October, [facility] [place] [facility] [address] [place] [address]- [address] Sep, [facility] [place] [facility] [address] [place] [address]- [address] Sep, [facility] [place] [facility] [address] [place] [address]- [address] Sep, [facility] [place] [facility] [address] [place] [address]- [address] Jul, [facility] [place] [facility] [address] [place] [id number] [address]- [address] Apr, [facility] [place] [facility] [address] [place] [id number] [address] Mar, IMMUNIZATIONS Vaccine Route Administration Date Status FLULAVAL QUAD 0.5ML (6 MO & UP) 2018 IM Intramuscular Mar 28, 2018 Administered SOCIAL HISTORY Never Assessed REASON FOR VISIT Blood Pressure, pt has added spironolactone 25 mg that she borrows from her dog --JNapier, [place] PLAN OF CARE Activity Details Follow Up 6 Months Reason:FU for BP Pending Test Mammogram, Bilateral Screening VITAL SIGNS Height 68 in 2018-03-28 Weight 238.6 lbs 2018-03-28 Temperature 98.2 degrees Fahrenheit 2018-03-28 Heart Rate 82 bpm 2018-03-28 Respiratory Rate 18 2018-03-28 BMI 36.28 kg/m2 2018-03-28 Blood pressure systolic 118 mmHg 2018-03-28 Blood pressure diastolic 66 mmHg 2018-03-28 MEDICATIONS Medication Instructions Dosage Frequency Start Date End Date Duration Status SudoGest 60 mg Orally 2 times a day 1 tablet as needed 12h 30 days Active Ibuprofen 200 MG Orally every 6 hrs as needed 4 tablets Active Spironolactone Active Vitamin D3 63719 UNIT Orally once weekly 1 capsule Jun, Active Spironolactone 25 MG Orally Once a day 1 tablet 24h Mar, Aug, 90 days Active Albuterol Sulfate HFA 108 (90 Base) MCG/ACT Inhalation every 6 hrs 2 puffs as needed 6h Aug, Active Chlorthalidone 25 MG Orally Once a day 1 tablet 24h Active Flonase 50 MCG/ACT Nasally twice a day 1 spray in each nostril 12h Aug, 7 days Active RESULTS No Results PROCEDURES Procedure Date Ordered Result Body Site FLULAVAL QUAD 0.5ML (6 MO AND UP) 2017Mar 28, 2018 SINGLE IMMUNIZATION ADMIN Mar 28, 2018 INSTRUCTIONS MEDICATIONS ADMINISTERED No Known Medications MEDICAL (GENERAL) HISTORY Type Description Date Medical History hypertension Medical History diverticulitis Medical History Hepatitis C Surgical History orthopedic surgery-right shoulder Hospitalization History Hospitalization for surgery only
--- OUTSIDE RECORDS SUMMARY | 2018-06-22 15:09 | XMS REPORT ---
Author Author ADRIÁN SHARP Organization [facility] Address [address] [place] [address] Care Team Providers Care Jewel Blocker And Sawyer Name Role Phone ADRIÁN SHAPR Unavailable PROBLEMS Type Condition ICD9-CM Code OAV52-ER Code Onset Dates Condition Status SNOMED Code Problem Tick bite, sequela W57.XXXS Active 65572916 Problem Non-intractable cyclical vomiting with nausea G43.A0 Active 41780559 Problem Arthralgia, unspecified joint M25.50 Active 55741778 Problem Chronic hepatitis C without hepatic coma B18.2 Active 332658126 Problem Exposure to hepatitis C Z20.5 Active 605773148 Problem Myalgia M79.1 Active 92944562 Problem Fatigue, unspecified type R53.83 Active 00852526 Problem Diverticulitis K57.92 Active 27780109 Problem Other chronic pain G89.29 Active 62444480 Problem Chronic fatigue R53.82 Active 65116274 Problem Essential hypertension I10 Active 62680899 Problem Seasonal allergic rhinitis due to pollen J30.1 Active 66839221 Problem Vasomotor rhinitis J30.0 Active 4756650 ALLERGIES Substance Reaction Event Type Date Status Lisinopril cough Drug Allergy May, Active Metoprolol Unknown Drug Allergy May, Active Gluten abd pain Non Drug Allergy May, Active ENCOUNTERS Encounter Location Date Diagnosis [facility] [id number] [address] May, Diverticulitis K57.92 [facility] [id number] [address] May, Pain in left knee M25.562 ; Other chronic pain G89.29 ; Shortness of breath R06.02 and Arthralgia, unspecified joint M25.50 [facility] [id number] [place] [address]- [address]23 Mar, Essential hypertension I10 ; Encounter for immunization Z23 ; Seasonal allergic rhinitis due to pollen J30.1 and Screening mammogram, encounter for Z12.31 [address] [id number] [place] [address]- [address] Jan, [place] [id number] [place] [address]99- 9601 Jan, Essential hypertension I10 [facility] [address] [address] Aug, Bronchitis J40 ; Acute pharyngitis, unspecified etiology J02.9 and Vasomotor rhinitis J30.0 [id number] [place] [address]- [address] Jun, Chronic fatigue R53.82 ; Weight gain R63.5 ; Acne, unspecified acne type L70.9 and Snoring R06.83 [place] [id number] [place] [address] 79[address]- 1290 Apr, Chronic hepatitis C without hepatic coma B18.[address] [address] Feb, Chronic hepatitis C without hepatic coma B18.2 [id number] [place] [address] 31311- 5505 Feb, Allergy, initial encounter T78.40XA [place] [id number] [place] [address] 11259- 2124 Feb, Chronic hepatitis C without hepatic coma B18.[address] [address]- [address] Dec, Non-intractable cyclical vomiting with nausea G43.A0 ; Essential hypertension I10 and Allergy, initial encounter T78.40XA [address] [id number] [place] [address] 16575- 6720 14 Sep, 2016 Chronic hepatitis C without hepatic coma B18.2 [facility] [id number] [place] [address] 17051- 7306 Sep, [facility] [id number] [place] [address] 20701- 3616 Apr, Common wart B07.8 [facility] [id number] [place] [address] 79812- 6386 Mar, Viral warts, unspecified type B07.9 [facility] [id number] [place] [address] 2546 Mar, [facility] [id number] [place] [address] 96279- 5916 Mar, Chronic hepatitis C without hepatic coma B18.2 [facility] [id number] [place] [address]87- 3166 Feb, [facility] [id number] [place] [address] 62788- 3726 Feb, Chronic hepatitis C without hepatic coma B18.2 [facility] [id number] [place] [address] 77250- 0296 Feb, Plantar fasciitis, bilateral M72.2 [facility] [id number] [place] [address] 81894- 7306 Dec, [facility] [id number] [place] [address] 42991- 2456 Dec, [facility] [id number] [place] [address] 28722 2546 Nov, Pain of left foot M79.672 ; Pain in right foot M79.671 and Tick bite, sequela W57.XXXS [facility] [id number] [place] [address] 64501- 6776 Nov, Pain of left foot M79.672 ; Pain in right foot M79.671 and Tick bite, sequela W57.XXXS [facility] [id number] [place] [address] 00877- 1924 Nov, Chronic hepatitis C without hepatic coma B18.2 [address] [place] [address] [address]- [address] Nov, Chronic hepatitis C without hepatic coma B18.2 [place] [address] 9[address]21- [address]753 Nov, [place] [address] [address]- [address] Nov, Myalgia M79.1 ; Arthralgia, unspecified joint M25.50 ; Fatigue, unspecified type R53.83 ; Tick bite, sequela W57.XXXS and Exposure to hepatitis C Z20.5 [place] [address] [address]- [address]39 October, [address] [address]- [address] May, Foot pain, unspecified laterality M79.673 ; Left knee pain M25.562 and Viral warts, unspecified type B07.[address] [address]- 8229 Mar, [address] 8[address]99- 6379 Mar, Spider bite, accidental or unintentional, initial encounter T63.301A ; Right knee pain M25.561 and Essential hypertension I10 [place] [address] [address]- 1547 Mar, [address] 72362- 4387 Dec, Abdominal pain 789.00 and Hemangioma 228.[address] [address]- [address]18 Nov, Leg pain 729.5 ; Plantar fasciitis 728.71 and Hypertension 401.9 [facility] [address] [id number] [place] [address]71 Nov, [facility] [address] [id number] [place] [address] October, [facility] [address] [facility] [id number] [place] [address] October, [facility] [address] [id number] [address] Sep, [facility] [address] [id number] [place] [address]- 0053 Sep, [facility] [address] [facility] [id number] [address] Aug, [facility] [id number] [place] [address] Aug, [facility] [address] [facility] [id number] [address] Jul, [facility] [address] [facility] [id number] [place] [address]- 3680 Jul, [facility] [id number] [address] 8179 Jun, [facility] [address] [facility] [id number] [address] 1580 Jun, [facility] [place] [facility] [address] [id number] [address] 1596 Jun, [facility] [address] [facility] [id number] [address]- 6689 Jun, [facility] [address] [facility] [id number] [address]- 0041 Jun, [facility] [place] [facility] [address] [facility] [id number] [address] Jun, [facility] [address] [id number] [place] [address]- 5674 16 Jun, 2014 [facility] [place] [facility] [address] [id number] [place] [address]- 8672 Jun, [facility] [place] [facility] [address] [id number] [place] [address]- 4103 15 Jun, 2014 [facility] [place] [facility] [address] [id number] [place] [address]- 8367 Jun, [facility] [place] [facility] [address] [id number] [place] [address]- 9809 Jun, [facility] [place] [facility] [address] [id number] [place] [address]- 7872 Jun, [facility] [place] [facility] [address] [id number] [place] [address]- 1788 Jun, [facility] [place] [facility] [address] [id number] [place] [address]- 1244 May, [facility] [place] [facility] [address] [id number] [place] [address]- 9248 May, [facility] [place] [facility] [address] [id number] [place] [address]- 9650 May, [facility] [place] [facility] [address] [id number] [place] [address]- 8819 Feb, [facility] [place] [facility] [address] [id number] [place] [address]- 3477 Feb, [facility] [place] [facility] [address] [id number] [place] [address]- 3615 Jan, [facility] [place] [facility] [address] [id number] [place] [address]- 7274 Jan, [facility] [place] [facility] [address] [id number] [place] [address]- 2250 Dec, [facility] [place] [facility] [address] [id number] [place] [address]- 2493 Dec, [facility] [place] [facility] [address] [id number] [place] [address]- 5101 May, [facility] [address] [id number] [place] [address]- 6890 May, [facility] [address] [id number] [place] [address]- 7294 24 Sep, 2012 [facility] [place] [facility] [address] [id number] [place] [address]- 7249 Jul, [facility] [address] [id number] [place] [address]- 2739 Jul, [facility] [address] [id number] [place] [address]- 1092 May, [facility] [address] [id number] [place] [address]- 7209 May, [facility] [address] [id number] [place] [address]- 6348 May, [facility] [address] [id number] [place] [address]- 8193 Mar, [facility] [address] [id number] [place] [address]- 4996 Feb, [facility] [address] [id number] [place] [address]- 1312 Dec, [facility] [place] [facility] [address] [id number] [place] [address]- 7538 October, [facility] [place] [facility] [address] [id number] [place] [address]- 0213 30 Sep, 2011 [facility] [place] [facility] [address] [id number] [place] [address]- 3374 Sep, [facility] [place] [facility] [address] [id number] [place] [address] Sep, [facility] [place] [facility] [address] [id number] [place] [address]- 2546 Jul, [facility] [address] [facility] [id number] [place] [address]- 2546 Apr, [facility] [address] [facility] [id number] [place] [address]- 2546 Mar, IMMUNIZATIONS No Known Immunizations SOCIAL HISTORY Never Assessed REASON FOR VISIT Pt requesting referral Pt needing a referral to mri for Lt knee, had injury years ago which still causes her to have dislocation, needs refill on albuterol inhaler DONNA Mendez PLAN OF CARE Activity Details Follow Up prn Reason: Pending Test MRI : Knee, Left w/o contrast VITAL SIGNS Height 68 in 2018-06-13 Weight 233.8 lbs 2018-06-13 Temperature 98.2 degrees Fahrenheit 2018-06-13 Heart Rate 88 bpm 2018-06-13 Respiratory Rate 18 2018-06-13 BMI 35.55 kg/m2 2018-06-13 Blood pressure systolic 122 mmHg 2018-06-13 Blood pressure diastolic 70 mmHg 2018-06-13 MEDICATIONS Medication Instructions Dosage Frequency Start Date End Date Duration Status Albuterol Sulfate HFA 108 (90 Base) MCG/ACT Inhalation every 6 hrs 2 puffs as needed 6h Aug, Active Vitamin D3 11257 UNIT Orally once weekly 1 capsule Jun, Active MethylPREDNISolone 4 MG Orally Once a day 1 tablet with food or milk in the morning 24h May, 15 days Active Flonase 50 MCG/ACT Nasally twice a day 1 spray in each nostril 12h Aug, 7 days Active Ibuprofen 200 MG Orally every 6 hrs as needed 4 tablets Active Chlorthalidone 25 MG Orally Once a day 1 tablet 24h Active Spironolactone 25 MG Orally Once a day 1 tablet 24h Mar, Aug, 90 days Active SudoGest 60 mg Orally 2 times a day 1 tablet as needed 12h 30 days Active Spironolactone Active RESULTS No Results PROCEDURES No Known procedures INSTRUCTIONS MEDICATIONS ADMINISTERED No Known Medications MEDICAL (GENERAL) HISTORY Type Description Date Medical History hypertension Medical History diverticulitis Medical History Hepatitis C Surgical History orthopedic surgery-right shoulder Hospitalization History Hospitalization for surgery only
--- OUTSIDE RECORDS SUMMARY | 2018-06-22 15:09 | XMS REPORT ---
Author Author ADRIÁN SHARP [facility] Address [address] [place] [address] Care Team Providers Care Field Property Loss Specialist Name Role Phone ADRIÁN SHARP Unavailable PROBLEMS Type Condition ICD9-CM Code RYX44-NE Code Onset Dates Condition Status SNOMED Code Problem Special screening for malignant neoplasms, colon V76.51 Active 025205251 Problem Screening for malignant neoplasm of the cervix V76.2 Active 680743300 Problem Unspecified breast screening V76.10 Active 010196582 Problem Other specified counseling V65.49 Active 664600479 Problem Special screening examination, human papillomavirus [HPV] V73.81 Active 090977801 Problem Routine gynecological examination V72.31 Active 629534015201019 Problem Leg pain 729.5 Active 25318918 Problem DTAP TEST V06.1 Active Problem Hypertension 401.9 Active 73333771 Problem Need for prophylactic vaccination and inoculation, Influenza V04.81 Active 677988541 Problem Myalgia M79.1 Active 47879622 Problem Fatigue, unspecified type R53.83 Active 07322998 Problem Exposure to hepatitis C Z20.5 Active 801905916 Problem Vasomotor rhinitis J30.0 Active 2228148 Problem Chronic fatigue R53.82 Active 22694457 Problem Pain in joint, site unspecified 719.40 Active 87828050 Problem Pain in joint, lower leg 719.46 Active 227562946 Problem Abdominal pain, unspecified site 789.00 Active 09126334 Problem Arthralgia, unspecified joint M25.50 Active 28085357 Problem Tick bite, sequela W57.XXXS Active 10792551 Problem Essential hypertension I10 Active 35246867 Problem Non-intractable cyclical vomiting with nausea G43.A0 Active 07573172 Problem Other emphysema 492.8 Active 24870858 Problem Acute sinusitis, unspecified 461.9 Active 58359579 Problem Celiac disease 579.0 Active 506805727 Problem Diverticulitis of colon (without mention of hemorrhage) 562.11 Active 555271954 Problem Nondependent tobacco use disorder 305.1 Active 808436460 Problem Chronic hepatitis C without hepatic coma B18.2 Active 835486225 Problem Essential hypertension, benign 401.1 Active 2082724 Problem Hordeolum externum 373.11 Active 5167440 ALLERGIES No Information ENCOUNTERS Encounter Location Date Diagnosis [facility] [address] [address] Mar, [facility] [address] [address] Jan, [facility] [address] [address] Jan, Essential hypertension I10 [facility] [address] [address] Aug, Bronchitis J40 ; Acute pharyngitis, unspecified etiology J02.9 and Vasomotor rhinitis J30.0 [place] [address] [address] Jun, Chronic fatigue R53.82 ; Weight gain R63.5 ; Acne, unspecified acne type L70.9 and Snoring R06.83 [place] [address] [place] [id number] [place] [address] Apr, Chronic hepatitis C without hepatic coma B18.2 [place] [address] [address] Feb, Chronic hepatitis C without hepatic coma B18.2 [place] [address] [place] [id number] [place] [address] Feb, Allergy, initial encounter T78.40XA [place] [address] [address] Feb, Chronic hepatitis C without hepatic coma B18.2 [place] [address] [address] Dec, Non-intractable cyclical vomiting with nausea G43.A0 ; Essential hypertension I10 and Allergy, initial encounter T78.40XA [facility] [address] [address] Sep, Chronic hepatitis C without hepatic coma B18.2 [facility] [address] [place] [id number] [place] [address] Sep, [facility] [address] [address] Apr, Common wart B07.8 [facility] [address] [address] Mar, Viral warts, unspecified type B07.9 [facility] [address] [address] Mar, [facility] [address] [address] Mar, Chronic hepatitis C without hepatic coma B18.2 [facility] [address] [id number] [place] [address]- [address] Feb, [facility] [address] [address] Feb, Chronic hepatitis C without hepatic coma B18.2 [place] [address] [place] [id number] [place] [address] Feb, Plantar fasciitis, bilateral M72.2 [facility] [address] [id number] [place] [address] Dec, [facility] [address] [address] Dec, [facility] [address] [place] [id number] [place] [address] Nov, 2016 Pain of left foot M79.672 ; Pain in right foot M79.671 and Tick bite, sequela W57.XXXS [place] [address] [place] [id number] [place] [address] 30 Nov, 2015 Pain of left foot M79.672 ; Pain in right foot M79.671 and Tick bite, sequela W57.XXXS [place] [address] [place] [id number] [place] [address]- [address] Nov, Chronic hepatitis C without hepatic coma B18.2 [place] [address] [address] Nov, Chronic hepatitis C without hepatic coma B18.2 [place] [address] [address]- [address] Nov, [place] [address] [address] Nov, Myalgia M79.1 ; Arthralgia, unspecified joint M25.50 ; Fatigue, unspecified type R53.83 ; Tick bite, sequela W57.XXXS and Exposure to hepatitis C Z20.5 [place] [address] [address] October, [place] [address] [address] May, Foot pain, unspecified laterality M79.673 ; Left knee pain M25.562 and Viral warts, unspecified type B07.9 [place] [address] [place] [id number] [place] [address]- [address] Mar, [place] [address] [address] Mar, Spider bite, accidental or unintentional, initial encounter T63.301A ; Right knee pain M25.561 and Essential hypertension I10 [place] [address] [place] [id number] [place] [address] Mar, [place] [address] [address] Dec, Abdominal pain 789.00 and Hemangioma 228.00 [facility] [address] [address] Nov, Leg pain 729.5 ; Plantar fasciitis 728.71 and Hypertension 401.9 [facility] [address] [address] Nov, [facility] [address] [id number] [place] [address] October, [facility] [place] [facility] [id number] [place] [address]- [address] October, [facility] [place] [facility] [address] [id number] [place] [address]- [address] Sep, [facility] [place] [facility] [address] [place] [id number] [place] [address]- [address] Sep, [facility] [place] [facility] [id number] [place] [address]- [address] Aug, [facility] [place] [facility] [address] [address] Aug, [facility] [place] [address] [place] [address] Jul, [facility] [place] [address] [address] Jul, [facility] [place] [address] [address] Jun, [facility] [place] [facility] [address] [address] Jun, [facility] [place] [address] [address] Jun, [facility] [place] [address] [address] Jun, [facility] [place] [facility] [address] [place] [id number] [place] [address]- [address] Jun, [facility] [address] [id number] [place] [address]- [address] Jun, [facility] [address] [id number] [place] [address]- [address] 16 Jun, 2014 [facility] [address] [id number] [place] [address]- [address] Jun, [facility] [address] [id number] [place] [address]- [address] 15 Jun, 2014 [facility] [address] [id number] [place] [address]- [address] Jun, [facility] [address] [id number] [place] [address]- 8048 Jun, [facility] [address] [id number] [place] [address]- 8[address] Jun, [facility] [address] [id number] [place] [address]- [address] Jun, [facility] [address] [id number] [place] [address]- [address] May, [facility] [address] [id number] [place] [address]- [address] May, [facility] [place] [facility] [address] [id number] [place] [address]- [address] May, [facility] [place] [facility] [address] [id number] [place] [address]- [address] Feb, [facility] [place] [facility] [address] [id number] [place] [address]- 7463 Feb, [facility] [place] [facility] [address] [id number] [place] [address]- [address] Jan, [facility] [place] [facility] [address] [id number] [place] [address]- 47[address] Jan, [facility] [place] [facility] [address] [id number] [place] [address]- 1647 Dec, [facility] [place] [facility] [address] [id number] [place] [address]- 9261 Dec, [facility] [place] [facility] [address] [id number] [place] [address]- [address] May, [facility] [place] [facility] [address] [id number] [place] [address]- 3[address] May, [facility] [place] [facility] [address] [id number] [place] [address]- 9086 Sep, [facility] [place] [facility] [address] [id number] [place] [address]- 118[address] Jul, [facility] [place] [facility] [address] [id number] [place] [address]- 98[address] Jul, [facility] [place] [facility] [address] [id number] [place] [address]- 57[address] May, [facility] [place] [facility] [address] [id number] [place] [address]- 9682 May, [facility] [place] [facility] [address] [id number], [place] [address]- 269[address] May, [facility] [place] [facility] [address] [id number], [place] [address]- [address] Mar, [facility] [place] [facility] [address] [id number], [place] [address]- [address]703 Feb, [facility] [place] [facility] [address] [id number] [place] [address]- 3454 Dec, [facility] [place] [facility] [address] [id number], [place] [address]- 284[address] October, [facility] [place] [facility] [address] [id number], [place] [address]- [address] Sep, [facility] [place] [facility] [address] [id number], [place] [address]- 25[address] Sep, [facility] [address] [facility] [id number], [place] [address]- [address] Sep, [facility] [address] [facility] [id number], [place] [address] 25[address] Jul, [facility] [address] [facility] [id number], [place] [address] Apr, [facility] [address] [facility] [id number], [place] [address]- [address] Mar, IMMUNIZATIONS No Known Immunizations SOCIAL HISTORY Never Assessed REASON FOR VISIT Controlled Med Refill PLAN OF CARE VITAL SIGNS MEDICATIONS Medication Instructions Dosage Frequency Start Date End Date Duration Status SudoGest 60 MG Orally every 6 hrs 1 tablet as needed 6h 07 days Active RESULTS No Results PROCEDURES No Known procedures INSTRUCTIONS MEDICATIONS ADMINISTERED No Known Medications MEDICAL (GENERAL) HISTORY Type Description Date Medical History hypertension Medical History diverticulitis Medical History Hepatitis C Surgical History orthopedic surgery-right shoulder Hospitalization History Hospitalization for surgery only
--- OUTSIDE RECORDS SUMMARY | 2018-06-22 15:10 | XMS REPORT ---
Author Author ADRIÁN SHARP [facility] Address [address] [place] [address] Care Team Providers Care Director Of Student Services Name Role Phone ADRIÁN SHARP Unavailable PROBLEMS Type Condition ICD9-CM Code GBI72-QR Code Onset Dates Condition Status SNOMED Code Problem Special screening for malignant neoplasms, colon V76.51 Active 680556703 Problem Screening for malignant neoplasm of the cervix V76.2 Active 042407508 Problem Unspecified breast screening V76.10 Active 179502111 Problem Other specified counseling V65.49 Active 825022507 Problem Special screening examination, human papillomavirus [HPV] V73.81 Active 868304758 Problem Routine gynecological examination V72.31 Active [id number] Problem Leg pain 729.5 Active 16008481 Problem DTAP TEST V06.1 Active Problem Hypertension 401.9 Active 28378651 Problem Need for prophylactic vaccination and inoculation, Influenza V04.81 Active 914370980 Problem Myalgia M79.1 Active 81755263 Problem Fatigue, unspecified type R53.83 Active 82722326 Problem Exposure to hepatitis C Z20.5 Active 119765376 Problem Vasomotor rhinitis J30.0 Active 5339645 Problem Chronic fatigue R53.82 Active 77961561 Problem Pain in joint, site unspecified 719.40 Active 67788012 Problem Pain in joint, lower leg 719.46 Active 503137495 Problem Abdominal pain, unspecified site 789.00 Active 70223251 Problem Arthralgia, unspecified joint M25.50 Active 59670999 Problem Tick bite, sequela W57.XXXS Active 07518619 Problem Essential hypertension I10 Active 36045988 Problem Non-intractable cyclical vomiting with nausea G43.A0 Active 14324618 Problem Other emphysema 492.8 Active 18839223 Problem Acute sinusitis, unspecified 461.9 Active 44108576 Problem Celiac disease 579.0 Active 636784586 Problem Diverticulitis of colon (without mention of hemorrhage) 562.11 Active 720631531 Problem Nondependent tobacco use disorder 305.1 Active 628667337 Problem Chronic hepatitis C without hepatic coma B18.2 Active 034350986 Problem Essential hypertension, benign 401.1 Active 5408984 Problem Hordeolum externum 373.11 Active 1629546 ALLERGIES Substance Reaction Event Type Date Status Lisinopril cough Drug Allergy Jun, Active Metoprolol Unknown Drug Allergy Jun, Active Gluten abd pain Non Drug Allergy Jun, Active ENCOUNTERS Encounter Location Date Diagnosis [facility] [address] [address] Aug, Bronchitis J40 ; Acute pharyngitis, unspecified etiology J02.9 and Vasomotor rhinitis J30.0 [facility] [address] [address] Jun, Chronic fatigue R53.82 ; Weight gain R63.5 ; Acne, unspecified acne type L70.9 and Snoring R06.83 [facility] [address] [address] Apr, Chronic hepatitis C without hepatic coma B18.2 [facility] [address] [address] 20 Feb, 2017 Chronic hepatitis C without hepatic coma B18.2 [facility] [address] [address] Feb, Allergy, initial encounter T78.40XA [facility] [address] [address] 13 Feb, 2017 Chronic hepatitis C without hepatic coma B18.2 [place] [address] [address] 07 Dec, 2016 Non-intractable cyclical vomiting with nausea G43.A0 ; Essential hypertension I10 and Allergy, initial encounter T78.40XA [place] [address] [address] 14 Sep, 2016 Chronic hepatitis C without hepatic coma B18.2 [facility] [address] [place] [address] Sep, [facility] [address] [place] [id number] [place] [address] Apr, Common wart B07.8 [facility] [address] [place] [id number] [place] [address] Mar, Viral warts, unspecified type B07.9 [facility] [address] [place] [id number] [place] [address] Mar, [facility] [address] [place] [id number] [place] [address] Mar, Chronic hepatitis C without hepatic coma B18.2 [facility] [address] [place] [address] [id number] [place] [address] Feb, [facility] [address] [place] [id number] [place] [address] Feb, Chronic hepatitis C without hepatic coma B18.2 [facility] [address] [place] [id number] [place] [address] Feb, Plantar fasciitis, bilateral M72.2 [facility] [address] [place] [address] Dec, [facility] [address] [place] [address] [id number] [place] [address] Dec, [facility] [address] [place] [address] [id number] [place] [address] 25[address] Nov, Pain of left foot M79.672 ; Pain in right foot M79.671 and Tick bite, sequela W57.XXXS [facility] [address] [place] [address] Nov, Pain of left foot M79.672 ; Pain in right foot M79.671 and Tick bite, sequela W57.XXXS [place] [address] [place] [id number] [place] [address] Nov, Chronic hepatitis C without hepatic coma B18.2 [place] [address] [address] Nov, Chronic hepatitis C without hepatic coma B18.2 [place] [address] [address] Nov, [place] [address] [address] Nov, Myalgia M79.1 ; Arthralgia, unspecified joint M25.50 ; Fatigue, unspecified type R53.83 ; Tick bite, sequela W57.XXXS and Exposure to hepatitis C Z20.[address] [address] October, [address] [address] May, Foot pain, unspecified laterality M79.673 ; Left knee pain M25.562 and Viral warts, unspecified type B07.[address] [address] Mar, [place] [id number] [place] [address] Mar, Spider bite, accidental or unintentional, initial encounter T63.301A ; Right knee pain M25.561 and Essential hypertension I10 [place] [id number] [place] [address] Mar, [address] [address] Dec, Abdominal pain 789.00 and Hemangioma 228.00 [place] [id number] [place] [address] Nov, Leg pain 729.5 ; Plantar fasciitis 728.71 and Hypertension 401.9 [facility] [address] [id number] [place] [address] Nov, [facility] [address] [id number] [place] [address] October, [facility] [address] [facility] [id number] [place] [address] October, [facility] [address] [id number] [place] [address] Sep, [facility] [place] [facility] [address] [id number] [place] [address] Sep, [facility] [address] [facility] [id number] [place] [address] Aug, [facility] [address] [facility] [id number] [place] [address] Aug, [facility] [address] [id number] [place] [address] Jul, [facility] [address] [id number] [place] [address] Jul, [facility] [address] [id number] [place] [address] Jun, [facility] [address] [id number] [address] Jun, [facility] [place] [facility] [address] [id number] [place] [address] Jun, [facility] [place] [facility] [address] [id number] [place] [address] Jun, [facility] [place] [facility] [address] [facility] [id number] [place] [address] Jun, [facility] [place] [facility] [address] [facility] [id number] [place] [address] Jun, [facility] [place] [facility] [address] [id number] [place] [address] 16 Jun, 2014 [facility] [address] [id number] [place] [address] Jun, [facility] [place] [facility] [address] [id number] [place] [address]- [address] 15 Jun, 2014 [facility] [address] [id number] [place] [address] Jun, [facility] [place] [facility] [address] [id number] [place] [address] Jun, [facility] [address] [id number] [place] [address] Jun, [facility] [address] [id number] [place] [address] Jun, [facility] [address] [id number] [place] [address] May, [facility] [address] [id number] [place] [address] May, [facility] [address] [id number] [place] [address] May, [facility] [address] [id number] [place] [address]- 94[address] Feb, [facility] [place] [facility] [address] [id number] [place] [address] Feb, [facility] [place] [facility] [address] [id number] [place] [address] Jan, [facility] [place] [facility] [address] [id number] [place] [address]- 9[address] Jan, [facility] [place] [facility] [address] [id number] [place] [address]- [address] Dec, [facility] [place] [facility] [address] [id number] [place] [address]- [address] Dec, [facility] [address] [id number] [place] [address]- [address] May, [facility] [place] [facility] [address] [id number] [place] [address]- [address] May, [facility] [address] [id number] [place] [address]- [address] 24 Sep, 2012 [facility] [place] [facility] [address] [id number] [place] [address]- [address] Jul, [facility] [address] [id number] [place] [address]- [address] Jul, [facility] [address] [id number] [place] [address]- 89[address] May, [facility] [address] [id number] [place] [address]- [address] May, [facility] [address] [id number] [place] [address]- [address] May, [facility] [address] [id number] [place] [address]- [address] Mar, [facility] [address] [id number] [place] [address]- [address] Feb, [facility] [place] [facility] [address] [id number] [place] [address]- 18[address] Dec, [facility] [place] [facility] [address] [id number] [place] [address]- [address] October, [facility] [place] [facility] [address] [id number] [place] [address]- [address] 30 Sep, 2011 [facility] [place] [facility] [address] [id number] [place] [address]- 84[address] Sep, [facility] [place] [facility] [address] [id number] [place] [address]- 75[address] Sep, [facility] [place] [facility] [address] [facility] [id number] [place] [address] Jul, [facility] [address] [facility] [id number] [place] [address]- [address] Apr, [facility] [address] [facility] [id number] [place] [address]- [address] Mar, IMMUNIZATIONS No Known Immunizations SOCIAL HISTORY Never Assessed REASON FOR VISIT PT is her with concerns of her hormons. acne, facial hair, lack of memory and tired-Alba MA PLAN OF CARE Activity Details Follow Up 2 Months Reason:fatibue VITAL SIGNS Height 68 in 2017-07-05 Weight 236.4 lbs 2017-07-05 Temperature 97.8 degrees Fahrenheit 2017-07-05 Heart Rate 82 bpm 2017-07-05 Respiratory Rate 18 2017-07-05 BMI 35.94 kg/m2 2017-07-05 Blood pressure systolic 126 mmHg 2017-07-05 Blood pressure diastolic 72 mmHg 2017-07-05 MEDICATIONS Medication Instructions Dosage Frequency Start Date End Date Duration Status Ibuprofen 200 MG Orally every 6 hrs as needed 4 tablets Active Chlorthalidone 25 MG Orally 2 times a day 1 tablet 12h 90 days Active Vitamin D 2000 UNIT Orally Once a day 1 tablet 24h Jun, Dec, 90 days Active Vitamin D3 64034 UNIT Orally once weekly 1 capsule Jun, Active Sudafed 60 mg Orally every 6 hrs 1 tablet as needed 6h 15 Feb, 2014 Active Nexium 40 mg Orally Once a day 1 capsule 24h 30 days Not-Taking RESULTS Name Result Date Reference Range TSH 2017-07-05 TSH 2.78 0.40-4.50 PROCEDURES Procedure Date Ordered Result Body Site LAB NOT BILLED BY [facility] Jul 05, 2017 VENIPUNCT, ROUTINE* Jul 05, 2017 INSTRUCTIONS MEDICATIONS ADMINISTERED No Known Medications MEDICAL (GENERAL) HISTORY Type Description Date Medical History hypertension Medical History diverticulitis Medical History Hepatitis C Surgical History orthopedic surgery-right shoulder Hospitalization History Hospitalization for surgery only
--- OUTSIDE RECORDS SUMMARY | 2018-06-22 15:10 | XMS REPORT ---
Author Author ADRIÁN SHARP [facility] Address [address] [place] [address] Care Team Providers Care Electoral Officer Name Role Phone ADRIÁN SHARP Unavailable PROBLEMS Type Condition ICD9-CM Code JQI25-OG Code Onset Dates Condition Status SNOMED Code Problem Special screening for malignant neoplasms, colon V76.51 Active 731266639 Problem Screening for malignant neoplasm of the cervix V76.2 Active 758354198 Problem Unspecified breast screening V76.10 Active 753483254 Problem Other specified counseling V65.49 Active 446087100 Problem Special screening examination, human papillomavirus [HPV] V73.81 Active 528826843 Problem Routine gynecological examination V72.31 Active [id number] Problem Leg pain 729.5 Active 35583564 Problem DTAP TEST V06.1 Active Problem Hypertension 401.9 Active 33175830 Problem Need for prophylactic vaccination and inoculation, Influenza V04.81 Active 420091562 Problem Myalgia M79.1 Active 88627679 Problem Fatigue, unspecified type R53.83 Active 88478704 Problem Exposure to hepatitis C Z20.5 Active 569822161 Problem Vasomotor rhinitis J30.0 Active 5962601 Problem Chronic fatigue R53.82 Active 26131605 Problem Pain in joint, site unspecified 719.40 Active 55181360 Problem Pain in joint, lower leg 719.46 Active 656164377 Problem Abdominal pain, unspecified site 789.00 Active 32066686 Problem Arthralgia, unspecified joint M25.50 Active 32580900 Problem Tick bite, sequela W57.XXXS Active 07944127 Problem Essential hypertension I10 Active 70948674 Problem Non-intractable cyclical vomiting with nausea G43.A0 Active 96111042 Problem Other emphysema 492.8 Active 25129171 Problem Acute sinusitis, unspecified 461.9 Active 62282807 Problem Celiac disease 579.0 Active 986502734 Problem Diverticulitis of colon (without mention of hemorrhage) 562.11 Active 607333880 Problem Nondependent tobacco use disorder 305.1 Active 858572925 Problem Chronic hepatitis C without hepatic coma B18.2 Active 593125364 Problem Essential hypertension, benign 401.1 Active 8789937 Problem Hordeolum externum 373.11 Active 4428009 ALLERGIES No Information ENCOUNTERS Encounter Location Date Diagnosis [facility] [address] [address] Mar, [facility] [address] [address] Jan, [facility] [address] [address] Jan, Essential hypertension I10 [facility] [address] [address] Aug, Bronchitis J40 ; Acute pharyngitis, unspecified etiology J02.9 and Vasomotor rhinitis J30.0 [place] [address] [address] Jun, Chronic fatigue R53.82 ; Weight gain R63.5 ; Acne, unspecified acne type L70.9 and Snoring R06.83 [place] [address] [place] [id number] [place] [address] Apr, Chronic hepatitis C without hepatic coma B18.2 [place] [address] [address] Feb, Chronic hepatitis C without hepatic coma B18.2 [place] [address] [id number] [place] [address]- [address] Feb, Allergy, initial encounter T78.40XA [place] [address] [address] Feb, Chronic hepatitis C without hepatic coma B18.2 [place] [address] [address] Dec, Non-intractable cyclical vomiting with nausea G43.A0 ; Essential hypertension I10 and Allergy, initial encounter T78.40XA [facility] [address] [address] Sep, Chronic hepatitis C without hepatic coma B18.2 [facility] [address] [place] [id number] [place] [address] Sep, [facility] [address] [address] Apr, Common wart B07.8 [facility] [address] [address] Mar, Viral warts, unspecified type B07.9 [facility] [address] [address] Mar, [facility] [address] [address] Mar, Chronic hepatitis C without hepatic coma B18.2 [facility] [address] [id number] [place] [address]- [address] Feb, [facility] [address] [address] Feb, Chronic hepatitis C without hepatic coma B18.2 [place] [address] [address] [id number] [place] [address] Feb, Plantar fasciitis, bilateral M72.2 [facility] [id number] [place] [address]- [address] Dec, [facility] [address] [address] Dec, [facility] [id number] [place] [address]- [address] Nov, 2016 Pain of left foot M79.672 ; Pain in right foot M79.671 and Tick bite, sequela W57.XXXS [place] [id number] [place] [address] 30 Nov, 2015 Pain of left foot M79.672 ; Pain in right foot M79.671 and Tick bite, sequela W57.XXXS [place] [id number] [place] [address]- [address] Nov, Chronic hepatitis C without hepatic coma B18.2 [place] [address] [address]- [address] Nov, Chronic hepatitis C without hepatic coma B18.2 [place] [address] [address]- [address] Nov, [place] [address] [address] Nov, Myalgia M79.1 ; Arthralgia, unspecified joint M25.50 ; Fatigue, unspecified type R53.83 ; Tick bite, sequela W57.XXXS and Exposure to hepatitis C Z20.5 [place] [address] [address] October, [place] [address] [address] May, Foot pain, unspecified laterality M79.673 ; Left knee pain M25.562 and Viral warts, unspecified type B07.9 [place] [address] [address] [id number] [place] [address]- [address] Mar, [place] [address] [address] Mar, Spider bite, accidental or unintentional, initial encounter T63.301A ; Right knee pain M25.561 and Essential hypertension I10 [place] [address] [id number] [place] [address] Mar, [place] [address] [address] Dec, Abdominal pain 789.00 and Hemangioma 228.00 [facility] [address] [address] Nov, Leg pain 729.5 ; Plantar fasciitis 728.71 and Hypertension 401.9 [facility] [address] [address] Nov, [facility] [address] [id number] [place] [address]- [address] October, [facility] [id number] [place] [address]- [address] October, [facility] [id number] [place] [address]- [address] Sep, [facility] [address] [id number] [place] [address]- [address]95 Sep, [facility] [id number] [place] [address]- [address] Aug, [facility] [address] [address] Aug, [facility] [address] [address] Jul, [facility] [address] [address] Jul, [facility] [address] [address] Jun, [facility] [address] [address] Jun, [facility] [address] [address] Jun, [facility] [address] [address] Jun, [facility] [id number] [address] Jun, [facility] [address] [id number] [place] [address]- 17[address] Jun, [facility] [address] [id number] [place] [address]- [address] 16 Jun, 2014 [facility] [address] [id number] [place] [address]- [address] Jun, [facility] [address] [id number] [place] [address]- [address] 15 Jun, 2014 [facility] [address] [id number] [place] [address]- [address] Jun, [facility] [address] [id number] [place] [address]- 9424 Jun, [facility] [address] [id number] [place] [address]- 4836 Jun, [facility] [address] [id number] [place] [address]- 4618 Jun, [facility] [address] [id number] [place] [address]- 8[address] May, [facility] [address] [id number] [place] [address]- 6[address] May, [facility] [place] [facility] [address] [id number] [place] [address]- 0872 May, [facility] [place] [facility] [address] [id number] [place] [address]- 9980 Feb, [facility] [place] [facility] [address] [id number] [place] [address]- 0412 Feb, [facility] [place] [facility] [address] [id number] [place] [address]- 06[address] Jan, [facility] [place] [facility] [address] [id number] [place] [address]- [address] Jan, [facility] [place] [facility] [address] [id number] [place] [address]- 3031 Dec, [facility] [place] [facility] [address] [id number] [place] [address]- 2789 Dec, [facility] [place] [facility] [address] [id number] [place] [address]- 3[address] May, [facility] [place] [facility] [address] [id number] [place] [address]- 6581 May, [facility] [place] [facility] [address] [id number] [place] [address]- 1628 Sep, [facility] [place] [facility] [address] [id number] [place] [address]- 5008 Jul, [facility] [place] [facility] [address] [id number] [place] [address]- 4765 Jul, [facility] [place] [facility] [address] [id number] [place] [address]- 8260 May, [facility] [place] [facility] [address] [id number] [place] [address]- 8764 May, [facility] [place] [facility] [address] [id number] [address]- [address] May, [facility] [place] [facility] [address] [id number] [address]- 2560 Mar, [facility] [place] [facility] [address] [id number] [address]- 5074 Feb, [facility] [place] [facility] [address] [id number] [place] [address]- 3970 Dec, [facility] [place] [facility] [address] [id number] [address]- 1786 October, [facility] [place] [facility] [address] [id number] [address]- [address] Sep, [facility] [place] [facility] [address] [id number] [address]- 2546 Sep, [facility] [address] [facility] [id number] [address]- 2546 Sep, [facility] [address] [facility] [id number] [place] [address]- 2546 Jul, [facility] [address] [facility] [id number] [place] [address]- [address] Apr, [facility] [address] [facility] [id number] [address]- [address] Mar, IMMUNIZATIONS No Known Immunizations SOCIAL HISTORY Never Assessed REASON FOR VISIT Repository Medication PLAN OF CARE VITAL SIGNS MEDICATIONS Medication Instructions Dosage Frequency Start Date End Date Duration Status Chlorthalidone 25 MG Orally 2 times a day 1 tablet 12h 90 days Active RESULTS No Results PROCEDURES No Known procedures INSTRUCTIONS MEDICATIONS ADMINISTERED No Known Medications MEDICAL (GENERAL) HISTORY Type Description Date Medical History hypertension Medical History diverticulitis Medical History Hepatitis C Surgical History orthopedic surgery-right shoulder Hospitalization History Hospitalization for surgery only
--- OUTSIDE RECORDS SUMMARY | 2018-06-22 15:10 | XMS REPORT ---
Author Author EVELYN ANDUJAR [facility] Address [address] [place] [address] Care Team Providers Care Hospital Insurance Clerk Name Role Phone BRIDGET GUTIERRESEVELYN GARCIAS Unavailable PROBLEMS Type Condition ICD9-CM Code JHX27-OB Code Onset Dates Condition Status SNOMED Code Problem Special screening for malignant neoplasms, colon V76.51 Active 341996987 Problem Screening for malignant neoplasm of the cervix V76.2 Active 314818262 Problem Unspecified breast screening V76.10 Active 660062840 Problem Other specified counseling V65.49 Active 605098026 Problem Special screening examination, human papillomavirus [HPV] V73.81 Active 100897546 Problem Routine gynecological examination V72.31 Active 890813033343126 Problem Leg pain 729.5 Active 81291742 Problem DTAP TEST V06.1 Active Problem Hypertension 401.9 Active 38064626 Problem Need for prophylactic vaccination and inoculation, Influenza V04.81 Active 330265668 Problem Myalgia M79.1 Active 69098367 Problem Fatigue, unspecified type R53.83 Active 63733987 Problem Exposure to hepatitis C Z20.5 Active 631051801 Problem Vasomotor rhinitis J30.0 Active 2499688 Problem Chronic fatigue R53.82 Active 11040843 Problem Pain in joint, site unspecified 719.40 Active 37214315 Problem Pain in joint, lower leg 719.46 Active 507461810 Problem Abdominal pain, unspecified site 789.00 Active 87024814 Problem Arthralgia, unspecified joint M25.50 Active 92110086 Problem Tick bite, sequela W57.XXXS Active 51663269 Problem Essential hypertension I10 Active 94613771 Problem Non-intractable cyclical vomiting with nausea G43.A0 Active 06216130 Problem Other emphysema 492.8 Active 36658224 Problem Acute sinusitis, unspecified 461.9 Active 54657377 Problem Celiac disease 579.0 Active 165874409 Problem Diverticulitis of colon (without mention of hemorrhage) 562.11 Active 397240155 Problem Nondependent tobacco use disorder 305.1 Active 128509578 Problem Chronic hepatitis C without hepatic coma B18.2 Active 763029822 Problem Essential hypertension, benign 401.1 Active 1028751 Problem Hordeolum externum 373.11 Active 0037115 ALLERGIES Substance Reaction Event Type Date Status Lisinopril cough Drug Allergy Aug, Active Metoprolol Unknown Drug Allergy Aug, Active Gluten abd pain Non Drug Allergy Aug, Active ENCOUNTERS Encounter Location Date Diagnosis [facility] [address] [address] Aug, Bronchitis J40 ; Acute pharyngitis, unspecified etiology J02.9 and Vasomotor rhinitis J30.0 [facility] [address] [address] Jun, Chronic fatigue R53.82 ; Weight gain R63.5 ; Acne, unspecified acne type L70.9 and Snoring R06.83 [facility] [address] [address] Apr, Chronic hepatitis C without hepatic coma B18.2 [facility] [address] [address]- 377[address] 20 Feb, 2017 Chronic hepatitis C without hepatic coma B18.2 [facility] [address] [address]- [address] Feb, Allergy, initial encounter T78.40XA [facility] [address] [address]- [address] 13 Feb, 2017 Chronic hepatitis C without hepatic coma B18.2 [place] [address] [address]- [address] 07 Dec, 2016 Non-intractable cyclical vomiting with nausea G43.A0 ; Essential hypertension I10 and Allergy, initial encounter T78.40XA [place] [address] [address]- 2[address] 14 Sep, 2016 Chronic hepatitis C without hepatic coma B18.2 [facility] [id number] [place] [address]645- 3426 Sep, [facility] [id number] [place] [address]47 2546 Apr, Common wart B07.8 [facility] [id number] [place] [address] 96242- 7376 Mar, Viral warts, unspecified type B07.9 [facility] [id number] [place] [address] 85998- 0036 Mar, [facility] [id number] [place] [address] 55547- 2976 Mar, Chronic hepatitis C without hepatic coma B18.2 [facility] [id number] [place] [address] 02875- 8146 Feb, [facility] [id number] [place] [address] 20008- 7119 Feb, Chronic hepatitis C without hepatic coma B18.2 [facility] [id number] [place] [address] 68387- 4794 Feb, Plantar fasciitis, bilateral M72.2 [facility] [address] [place] [address] 87315- 2542 Dec, [facility] [id number] [place] [address] 85793 2546 Dec, [facility] [id number] [place] [address] 61153 2546 Nov, Pain of left foot M79.672 ; Pain in right foot M79.671 and Tick bite, sequela W57.XXXS [facility] [address] [place] [address] 98441- 2546 Nov, Pain of left foot M79.672 ; Pain in right foot M79.671 and Tick bite, sequela W57.XXXS [place] [address] [id number] [place] [address] 00248- 3077 Nov, Chronic hepatitis C without hepatic coma B18.2 [place] [address] [address]- 1664 Nov, [place] [address] 28097- 2281 Nov, Chronic hepatitis C without hepatic coma B18.2 [place] [address] 76233- 6453 16 Nov, 2015 Myalgia M79.1 ; Arthralgia, unspecified joint M25.50 ; Fatigue, unspecified type R53.83 ; Tick bite, sequela W57.XXXS and Exposure to hepatitis C Z20.5 [place] [address] [address]- 8900 October, [address] [address]- [address] May, Foot pain, unspecified laterality M79.673 ; Left knee pain M25.562 and Viral warts, unspecified type B07.[address] [address]- [address] Mar, [address] [address]- 1665 Mar, Spider bite, accidental or unintentional, initial encounter T63.301A ; Right knee pain M25.561 and Essential hypertension I10 [address] [address]- 6087 Mar, [address] [address]- 0585 Dec, Abdominal pain 789.00 and Hemangioma 228.00 [place] [id number] [place] [address] 80676- 0314 Nov, Leg pain 729.5 ; Plantar fasciitis 728.71 and Hypertension 401.9 [facility] [address] [id number] [place] [address]- 2332 Nov, [facility] [address] [id number], [place] [address] 3440 October, [facility] [address] [facility] [id number] [place] [address]- 7755 October, [facility] [address] [id number], [place] [address]- 8346 Sep, [facility] [place] [facility] [address] [id number] [place] [address]- 9000 Sep, [facility] [address] [facility] [id number], [place] [address]- 1156 Aug, [facility] [address] [facility] [id number], [place] [address]- 8334 Aug, [facility] [address] [id number], [place] [address]- 7285 Jul, [facility] [address] [id number], [place] [address] 7316 Jul, [facility] [address] [id number], [place] [address]- 9839 Jun, [facility] [address] [id number], [place] [address]- 4145 Jun, [facility] [place] [facility] [address] [id number], [place] [address]- 0446 Jun, [facility] [place] [facility] [address] [id number], [place] [address]- 8209 Jun, [facility] [place] [facility] [address] [facility] [id number], [place] [address]- 4187 Jun, [facility] [place] [facility] [address] [facility] [id number], [place] [address]- 1426 Jun, [facility] [place] [facility] [address] [id number] [place] [address]- 1507 16 Jun, 2014 [facility] [address] [id number] [place] [address]- 0374 Jun, [facility] [place] [facility] [address] [id number] [place] [address]- 1232 15 Jun, 2014 [facility] [address] [id number] [place] [address]- 3381 Jun, [facility] [place] [facility] [address] [id number] [place] [address]- 8906 Jun, [facility] [address] [id number] [place] [address]- 5465 Jun, [facility] [address] [id number] [place] [address]- 7384 Jun, [facility] [address] [id number] [place] [address]- 0677 May, [facility] [address] [id number] [place] [address]- 9364 May, [facility] [address] [id number] [place] [address]- 6410 May, [facility] [address] [id number] [place] [address]- 8236 Feb, [facility] [place] [facility] [address] [id number] [place] [address]- 4019 Feb, [facility] [place] [facility] [address] [id number] [place] [address]- 7140 Jan, [facility] [place] [facility] [address] [id number] [place] [address]- 6574 Jan, [facility] [place] [facility] [address] [id number] [place] [address]- 1216 Dec, [facility] [place] [facility] [address] [id number] [place] [address]- 5996 Dec, [facility] [address] [id number] [place] [address]- 8774 May, [facility] [place] [facility] [address] [id number] [place] [address]- 4038 May, [facility] [address] [id number] [place] [address]- 3302 24 Sep, 2012 [facility] [place] [facility] [address] [id number] [place] [address]- 0845 Jul, [facility] [address] [id number] [place] [address]- 3025 Jul, [facility] [address] [id number] [place] [address]- 0355 May, [facility] [address] [id number] [place] [address]- 5218 May, [facility] [address] [id number] [place] [address]- 9104 May, [facility] [address] [id number] [place] [address]- 1555 Mar, [facility] [address] [id number] [place] [address]- 9619 Feb, [facility] [place] [facility] [address] [id number] [place] [address]- 5320 Dec, [facility] [place] [facility] [address] [id number], [place] [address]- 5867 October, [facility] [place] [facility] [address] [id number] [place] [address]- 2971 30 Sep, 2011 [facility] [place] [facility] [address] [id number] [place] [address]- 4100 Sep, [facility] [place] [facility] [address] [id number] [place] [address]- 4743 Sep, [facility] [place] [facility] [address] [facility] [id number] [place] [address]- 1216 Jul, [facility] [address] [facility] [id number] [place] [address]- 1916 Apr, [facility] [address] [facility] [id number] [place] [address]- 1400 Mar, IMMUNIZATIONS No Known Immunizations SOCIAL HISTORY Never Assessed REASON FOR VISIT Congestion Pt c/o congestion and cough for about a week, states having SOB with cough DONNA Mendez PLAN OF CARE Activity Details Follow Up prn Reason: VITAL SIGNS Height 68 in 2017-09-03 Weight 231.8 lbs 2017-09-03 Temperature 98.1 degrees Fahrenheit 2017-09-03 Heart Rate 68 bpm 2017-09-03 Respiratory Rate 20 2017-09-03 Oximetry 96 % 2017-09-03 BMI 35.24 kg/m2 2017-09-03 Blood pressure systolic 138 mmHg 2017-09-03 Blood pressure diastolic 84 mmHg 2017-09-03 MEDICATIONS Medication Instructions Dosage Frequency Start Date End Date Duration Status Zithromax Z-Trey 250 MG Orally Once a day 2 tablets on the first day, then 1 tablet daily for 4 days 24h Aug, Aug, 5 day(s) Active Chlorthalidone 25 MG Orally 2 times a day 1 tablet 12h 90 days Active Flonase 50 MCG/ACT Nasally twice a day 1 spray in each nostril 12h Aug, 07 days Active Medrol 4 MG take each days dose at one time each day until gone as directed Aug, Active Ibuprofen 200 MG Orally every 6 hrs as needed 4 tablets Active Vitamin D 2000 UNIT Orally Once a day 1 tablet 24h Jun, Dec, 90 days Active Vitamin D3 10855 UNIT Orally once weekly 1 capsule Jun, Active Sudafed 60 mg Orally every 6 hrs 1 tablet as needed 6h 15 Feb, 2014 Active Nexium 40 mg Orally Once a day 1 capsule 24h 30 days Not-Taking Albuterol Sulfate HFA 108 (90 Base) MCG/ACT Inhalation every 6 hrs 2 puffs as needed 6h Aug, Active RESULTS No Results PROCEDURES No Known procedures INSTRUCTIONS MEDICATIONS ADMINISTERED No Known Medications MEDICAL (GENERAL) HISTORY Type Description Date Medical History hypertension Medical History diverticulitis Medical History Hepatitis C Surgical History orthopedic surgery-right shoulder Hospitalization History Hospitalization for surgery only
--- OUTSIDE RECORDS SUMMARY | 2018-06-22 15:11 | XMS REPORT ---
Author Author ADRIÁN SHARP [facility] Address [address] [place] [address] Care Team Providers Care Ship Pilot Dispatcher Name Role Phone ADRIÁN SHARP Unavailable PROBLEMS Type Condition ICD9-CM Code PJE56-NE Code Onset Dates Condition Status SNOMED Code Problem Special screening for malignant neoplasms, colon V76.51 Active 218077573 Problem Screening for malignant neoplasm of the cervix V76.2 Active 878139950 Problem Unspecified breast screening V76.10 Active 575526726 Problem Other specified counseling V65.49 Active 972290877 Problem Special screening examination, human papillomavirus [HPV] V73.81 Active 166856817 Problem Routine gynecological examination V72.31 Active 672081160648135 Problem Leg pain 729.5 Active 02861248 Problem DTAP TEST V06.1 Active Problem Hypertension 401.9 Active 90838534 Problem Need for prophylactic vaccination and inoculation, Influenza V04.81 Active 265558807 Problem Myalgia M79.1 Active 16399477 Problem Fatigue, unspecified type R53.83 Active 92787162 Problem Exposure to hepatitis C Z20.5 Active 625835167 Problem Vasomotor rhinitis J30.0 Active 0804848 Problem Chronic fatigue R53.82 Active 08694143 Problem Pain in joint, site unspecified 719.40 Active 81559587 Problem Pain in joint, lower leg 719.46 Active 966103019 Problem Abdominal pain, unspecified site 789.00 Active 87893239 Problem Arthralgia, unspecified joint M25.50 Active 67195577 Problem Tick bite, sequela W57.XXXS Active 78892048 Problem Essential hypertension I10 Active 60761750 Problem Non-intractable cyclical vomiting with nausea G43.A0 Active 26205293 Problem Other emphysema 492.8 Active 60558723 Problem Acute sinusitis, unspecified 461.9 Active 96093406 Problem Celiac disease 579.0 Active 667725706 Problem Diverticulitis of colon (without mention of hemorrhage) 562.11 Active 673971297 Problem Nondependent tobacco use disorder 305.1 Active 860369952 Problem Chronic hepatitis C without hepatic coma B18.2 Active 246825599 Problem Essential hypertension, benign 401.1 Active 3819914 Problem Hordeolum externum 373.11 Active 1715175 ALLERGIES No Information ENCOUNTERS Encounter Location Date Diagnosis [facility] [id number] [place] [address] 09 Aug, 2017 Bronchitis J40 ; Acute pharyngitis, unspecified etiology J02.9 and Vasomotor rhinitis J30.0 [place] [address] [address]- [address] Jun, Chronic fatigue R53.82 ; Weight gain R63.5 ; Acne, unspecified acne type L70.9 and Snoring R06.83 [place] [address] [address]- 6002 Apr, Chronic hepatitis C without hepatic coma B18.2 [facility] [address] [address]- 0914 20 Feb, 2017 Chronic hepatitis C without hepatic coma B18.2 [place] [address] 7[address]- 3056 Feb, Allergy, initial encounter T78.40XA [place] [address] [id number] [place] [address] 5[address]12- 5442 13 Feb, 2017 Chronic hepatitis C without hepatic coma B18.2 [facility] [id number] [place] [address] 17632- 3767 Dec, Non-intractable cyclical vomiting with nausea G43.A0 ; Essential hypertension I10 and Allergy, initial encounter T78.40XA [place] [address] 20877- 3221 14 Sep, 2016 Chronic hepatitis C without hepatic coma B18.2 [place] [address] 14733- 1813 Sep, [facility] [id number] [place] [address] 58034- 7608 Apr, Common wart B07.8 [facility] [id number] [place] [address] 52833- 9157 Mar, Viral warts, unspecified type B07.9 [facility] [id number] [place] [address] 68397- 8886 Mar, [facility] [id number] [place] [address] 00063- 4074 Mar, Chronic hepatitis C without hepatic coma B18.2 [facility] [id number] [place] [address] 03845- 7563 Feb, [facility] [id number] [place] [address] 21862- 5406 Feb, Chronic hepatitis C without hepatic coma B18.2 [facility] [id number] [place] [address] 71848- 9116 Feb, Plantar fasciitis, bilateral M72.2 [facility] [id number] [place] [address] 27271- 9009 Dec, [facility] [id number] [place] [address] 57119- 1634 Dec, [facility] [id number] [place] [address] 70954- 3402 Nov, Pain of left foot M79.672 ; Pain in right foot M79.671 and Tick bite, sequela W57.XXXS [facility] [id number] [place] [address] 52146- 8273 Nov, Pain of left foot M79.672 ; Pain in right foot M79.671 and Tick bite, sequela W57.XXXS [facility] [id number] [place] [address] 87062- 7681 Nov, Chronic hepatitis C without hepatic coma B18.2 [place] [address] [place] [address] [id number] [place] [address] 13538- 9024 Nov, [place] [address] 00963- 3631 Nov, Chronic hepatitis C without hepatic coma B18.2 [place] [address] 40940- 1047 16 Nov, 2015 Myalgia M79.1 ; Arthralgia, unspecified joint M25.50 ; Fatigue, unspecified type R53.83 ; Tick bite, sequela W57.XXXS and Exposure to hepatitis C Z20.5 [place] [address] 20236- 8051 October, [place] [address] 10425- 8783 May, Foot pain, unspecified laterality M79.673 ; Left knee pain M25.562 and Viral warts, unspecified type B07.9 [place] [address] 44873- 0515 Mar, [place] [address] 44255- 8038 Mar, Spider bite, accidental or unintentional, initial encounter T63.301A ; Right knee pain M25.561 and Essential hypertension I10 [place] [address] 22555- 3175 Mar, [place] [address] 11403- 3163 Dec, Abdominal pain 789.00 and Hemangioma 228.[address] [address]99- 0516 Nov, Leg pain 729.5 ; Plantar fasciitis 728.71 and Hypertension 401.9 [place] [address] [address]- 1958 Nov, [facility] [place] [facility] [address] [id number] [place] [address]- 0913 October, [facility] [place] [facility] [address] [id number] [place] [address]- 4759 October, [facility] [place] [facility] [address] [id number] [place] [address]- 1618 Sep, [facility] [place] [facility] [address] [id number] [place] [address]- 1762 Sep, [facility] [place] [facility] [address] [id number] [place] [address]- 6558 Aug, [facility] [place] [facility] [address] [id number] [place] [address]- 6016 Aug, [facility] [place] [facility] [address] [id number] [place] [address]- 3162 Jul, [facility] [place] [facility] [address] [id number], [place] [address]- 8391 Jul, [facility] [place] [facility] [address] [id number] [place] [address]- 9962 Jun, [facility] [place] [facility] [address] [id number] [place] [address]- 9746 Jun, [facility] [place] [facility] [address] [id number], [place] [address]- 2806 Jun, [facility] [place] [facility] [address] [id number], [place] [address]- 1095 Jun, [facility] [place] [facility] [address] [id number] [place] [address]- 9303 Jun, [facility] [place] [facility] [address] [id number] [place] [address]- 4129 Jun, [facility] [place] [facility] [address] [id number] [place] [address]- 4618 Jun, [facility] [place] [facility] [address] [id number] [place] [address]- 1284 15 Jun, 2014 [facility] [place] [facility] [address] [id number] [place] [address]- 5882 Jun, [facility] [place] [facility] [address] [id number] [place] [address]- 9659 Jun, [facility] [place] [facility] [address] [id number] [place] [address]- 0529 Jun, [facility] [place] [facility] [address] [id number] [place] [address]- 2616 Jun, [facility] [place] [facility] [address] [id number] [place] [address]- 8374 Jun, [facility] [place] [facility] [address] [id number] [place] [address]- 9440 May, [facility] [place] [facility] [address] [id number] [place] [address]- 7307 May, [facility] [place] [facility] [address] [id number] [place] [address]- 7213 May, [facility] [place] [facility] [address] [id number] [place] [address]- 5546 Feb, [facility] [place] [facility] [address] [id number] [place] [address]- 5086 Feb, [facility] [place] [facility] [address] [id number] [place] [address]- 6093 Jan, [facility] [place] [facility] [address] [id number] [place] [address]- 4124 Jan, [facility] [place] [facility] [address] [id number] [place] [address]- 6470 Dec, [facility] [place] [facility] [address] [id number] [place] [address]- 7592 Dec, [facility] [place] [facility] [address] [id number] [place] [address]- 2204 May, [facility] [place] [facility] [address] [id number] [place] [address]- 0566 May, [facility] [address] [id number] [place] [address]- 4209 24 Sep, 2012 [facility] [place] [facility] [address] [id number] [place] [address]- 5833 Jul, [facility] [address] [id number] [place] [address]- 7516 Jul, [facility] [address] [id number] [place] [address]- 5346 May, [facility] [address] [id number] [place] [address]- 9954 May, [facility] [address] [id number] [place] 4399 May, [facility] [address] [id number] [place] [address]- 9966 Mar, [facility] [address] [id number] [place] [address]- 6930 Feb, [facility] [address] [id number] [place] [address] Dec, [facility] [address] [id number] [place] [address] October, [facility] [address] [id number] [place] [address] 30 Sep, 2011 [facility] [place] [facility] [address] [id number] [place] [address] Sep, [facility] [place] [facility] [address] [id number] [place] [address] Sep, [facility] [place] [facility] [address] [id number] [place] [address] Jul, [facility] [place] [facility] [address] [id number] [place] [address] Apr, [facility] [address] [facility] [id number] [place] [address] Mar, IMMUNIZATIONS No Known Immunizations SOCIAL HISTORY Never Assessed REASON FOR VISIT Hep C Lab note PLAN OF CARE VITAL SIGNS MEDICATIONS No Known Medications RESULTS No Results PROCEDURES No Known procedures INSTRUCTIONS MEDICATIONS ADMINISTERED No Known Medications MEDICAL (GENERAL) HISTORY Type Description Date Medical History hypertension Medical History diverticulitis Medical History Hepatitis C Surgical History orthopedic surgery-right shoulder Hospitalization History Hospitalization for surgery only
--- OUTSIDE RECORDS SUMMARY | 2018-06-22 15:11 | XMS REPORT ---
Author Author LILLI MCBRIDE [facility] Address [address] [place] [address] Care Team Providers Care Property Assistant Name Role Phone LILLI MCBRIDE Unavailable PROBLEMS Type Condition ICD9-CM Code SCX47-AT Code Onset Dates Condition Status SNOMED Code Problem Special screening for malignant neoplasms, colon V76.51 Active 265903308 Problem Screening for malignant neoplasm of the cervix V76.2 Active 002720671 Problem Unspecified breast screening V76.10 Active 455158684 Problem Other specified counseling V65.49 Active 100258361 Problem Special screening examination, human papillomavirus [HPV] V73.81 Active 360769232 Problem Routine gynecological examination V72.31 Active 030564514135168 Problem Leg pain 729.5 Active 92960785 Problem DTAP TEST V06.1 Active Problem Hypertension 401.9 Active 91403329 Problem Need for prophylactic vaccination and inoculation, Influenza V04.81 Active 946264645 Problem Myalgia M79.1 Active 04314523 Problem Fatigue, unspecified type R53.83 Active 00466235 Problem Exposure to hepatitis C Z20.5 Active 880737750 Problem Vasomotor rhinitis J30.0 Active 9367396 Problem Chronic fatigue R53.82 Active 67499695 Problem Pain in joint, site unspecified 719.40 Active 53945618 Problem Pain in joint, lower leg 719.46 Active 720711277 Problem Abdominal pain, unspecified site 789.00 Active 11469488 Problem Arthralgia, unspecified joint M25.50 Active 30155694 Problem Tick bite, sequela W57.XXXS Active 15729568 Problem Essential hypertension I10 Active 70426180 Problem Non-intractable cyclical vomiting with nausea G43.A0 Active 90476143 Problem Other emphysema 492.8 Active 89811879 Problem Acute sinusitis, unspecified 461.9 Active 44105446 Problem Celiac disease 579.0 Active 187006036 Problem Diverticulitis of colon (without mention of hemorrhage) 562.11 Active 616311030 Problem Nondependent tobacco use disorder 305.1 Active 929498569 Problem Chronic hepatitis C without hepatic coma B18.2 Active 666354711 Problem Essential hypertension, benign 401.1 Active 1791504 Problem Hordeolum externum 373.11 Active 0398375 ALLERGIES No Information ENCOUNTERS Encounter Location Date Diagnosis [facility] IN [facility] [id number] [place] [address]64 -[address]455 09 Aug, 2017 Bronchitis J40 ; Acute pharyngitis, unspecified etiology J02.9 and Vasomotor rhinitis J30.0 [facility] [address] [address]- [address] Jun, Chronic fatigue R53.82 ; Weight gain R63.5 ; Acne, unspecified acne type L70.9 and Snoring R06.83 [place] [address] [address]- 30[address] Apr, Chronic hepatitis C without hepatic coma B18.2 [facility] [address] 8[address]40- 1827 20 Feb, 2017 Chronic hepatitis C without hepatic coma B18.2 [facility] [address] 01115- 0828 13 Feb, 2017 Allergy, initial encounter T78.40XA [facility] [id number] [place] [address] 88060- 0453 13 Feb, 2017 Chronic hepatitis C without hepatic coma B18.2 [facility] [id number] [place] [address] 80975- 8274 07 Dec, 2016 Non-intractable cyclical vomiting with nausea G43.A0 ; Essential hypertension I10 and Allergy, initial encounter T78.40XA [place] [address] 38518- 1125 14 Sep, 2016 Chronic hepatitis C without hepatic coma B18.2 [facility] [id number] [place] [address] 13629- 6601 Sep, [facility] [id number] [place] [address] 77237- 7362 Apr, Common wart B07.8 [facility] [id number] [place] [address] 04439- 0940 Mar, Viral warts, unspecified type B07.9 [facility] [id number] [place] [address] 38464- 1766 Mar, [facility] [id number] [place] [address] 06216- 7188 Mar, Chronic hepatitis C without hepatic coma B18.2 [facility] [id number] [place] [address] 57950- 8930 Feb, [facility] [id number] [place] [address] 86834- 7152 Feb, Chronic hepatitis C without hepatic coma B18.2 [facility] [id number] [place] [address] 34526- 0308 Feb, Plantar fasciitis, bilateral M72.2 [facility] [id number] [place] [address] 51806- 5276 Dec, [facility] [id number] [place] [address] 22301- 7052 Dec, [facility] [id number] [place] [address] 36065- 8911 Nov, Pain of left foot M79.672 ; Pain in right foot M79.671 and Tick bite, sequela W57.XXXS [facility] [id number] [place] [address] 64733- 6038 Nov, Pain of left foot M79.672 ; Pain in right foot M79.671 and Tick bite, sequela W57.XXXS [facility] [id number] [place] [address] 59840- 0826 Nov, Chronic hepatitis C without hepatic coma B18.2 [facility] [address] 30521- 9877 Nov, Chronic hepatitis C without hepatic coma B18.2 [place] [address] 11828- 6307 Nov, [place] [address] 74913- 6373 Nov, Myalgia M79.1 ; Arthralgia, unspecified joint M25.50 ; Fatigue, unspecified type R53.83 ; Tick bite, sequela W57.XXXS and Exposure to hepatitis C Z20.[address] [address]81- 4730 October, [place] [address] 50118- 3748 May, Foot pain, unspecified laterality M79.673 ; Left knee pain M25.562 and Viral warts, unspecified type B07.[address] 01373- 3545 Mar, [address] 81890- 5641 Mar, Spider bite, accidental or unintentional, initial encounter T63.301A ; Right knee pain M25.561 and Essential hypertension I10 [address] 57260- 5249 Mar, [address] 12171- 2447 Dec, Abdominal pain 789.00 and Hemangioma 228.[address] 98255- 5426 Nov, Leg pain 729.5 ; Plantar fasciitis 728.71 and Hypertension 401.[address] 54081- 6875 Nov, [address] [id number] [place] [address]- 0010 October, [facility] [place] [facility] [address] [id number] [place] [address]- 0964 October, [facility] [place] [facility] [address] [id number] [place] [address]- 2081 Sep, [facility] [place] [facility] [address] [id number] [place] [address]- 3928 Sep, [facility] [place] [facility] [address] [id number] [place] [address]- 7127 Aug, [facility] [place] [facility] [address] [id number] [place] [address]- 7755 Aug, [facility] [place] [facility] [address] [id number] [place] [address]- 5777 Jul, [facility] [place] [facility] [address] [id number] [place] [address]- 8081 Jul, [facility] [place] [facility] [address] [id number] [place] [address]- 7001 Jun, [facility] [place] [facility] [address] [id number] [place] [address]- 0899 Jun, [facility] [place] [facility] [address] [id number] [place] [address]- 7823 Jun, [facility] [place] [facility] [address] [id number] [place] [address]- 4789 Jun, [facility] [place] [facility] [address] [id number] [place] [address]- 4339 Jun, [facility] [place] [facility] [address] [id number] [place] [address]- 3635 Jun, [facility] [place] [facility] [address] [id number] [place] [address]- 5219 16 Jun, 2014 [facility] [place] [facility] [address] [id number] [place] [address]- 5675 Jun, [facility] [place] [facility] [address] [id number] [place] [address]- 9607 Jun, [facility] [place] [facility] [address] [id number] [place] [address]- 7695 Jun, [facility] [place] [facility] [address] [id number] [place] [address]- 9538 Jun, [facility] [place] [facility] [address] [id number] [place] [address]- 1725 Jun, [facility] [place] [facility] [address] [id number] [place] [address]- 8204 Jun, [facility] [place] [facility] [address] [id number] [place] [address]- 7849 May, [facility] [place] [facility] [address] [id number] [place] [address]- 3219 May, [facility] [place] [facility] [address] [id number] [place] [address]- 9935 May, [facility] [place] [facility] [address] [id number] [place] [address]- 4510 Feb, [facility] [place] [facility] [address] [id number] [place] [address]- 6316 Feb, [facility] [place] [facility] [address] [id number] [place] [address]- 3665 Jan, [facility] [place] [facility] [address] [id number] [place] [address]- 5415 Jan, [facility] [place] [facility] [address] [id number] [place] [address]- 9259 Dec, [facility] [place] [facility] [address] [id number] [place] [address]- 7913 Dec, [facility] [place] [facility] [address] [id number] [place] [address]- 2945 May, [facility] [place] [facility] [address] [id number] [place] [address]- 7349 May, [facility] [address] [id number] [place] [address]- 0695 24 Sep, 2012 [facility] [address] [id number] [place] [address]- 0205 Jul, [facility] [address] [id number] [place] [address]- 2929 Jul, [facility] [address] [id number] [place] 5571 May, [facility] [address] [id number] [place] [address]- 0105 May, [facility] [address] [id number] [place] [address]- 3885 May, [facility] [address] [id number] [place] [address]- 5083 Mar, [facility] [address] [id number] [place] [address]- 5288 Feb, [facility] [address] [id number] [place] [address]- 9782 Dec, [facility] [address] [id number] [place] [address]- 5638 October, [facility] [address] [id number] [place] [address]- 6607 30 Sep, 2011 [facility] [address] [id number] [place] [address] 2548 Sep, [facility] [address] [id number] [place] [address]- 3911 Sep, [facility] [address] [id number] [place] [address] 2546 Jul, [facility] [address] [id number] [place] [address]- 9794 Apr, [facility] [address] [facility] [id number] [address] Mar, IMMUNIZATIONS No Known Immunizations SOCIAL HISTORY Never Assessed REASON FOR VISIT Refill request PLAN OF CARE VITAL SIGNS MEDICATIONS Medication [...]
--- OUTSIDE RECORDS SUMMARY | 2018-06-22 15:12 | XMS REPORT ---
Author Author ADRIÁN SHARP [facility] Address [address] [place] [address] Care Team Providers Care Supervisor Paper Machine Name Role Phone ADRIÁN SHARP Unavailable PROBLEMS Type Condition ICD9-CM Code XZQ55-HS Code Onset Dates Condition Status SNOMED Code Problem Special screening for malignant neoplasms, colon V76.51 Active 006173586 Problem Screening for malignant neoplasm of the cervix V76.2 Active 183984837 Problem Unspecified breast screening V76.10 Active 933346560 Problem Other specified counseling V65.49 Active 943753171 Problem Special screening examination, human papillomavirus [HPV] V73.81 Active 079708884 Problem Routine gynecological examination V72.31 Active [id number] Problem Leg pain 729.5 Active 10097926 Problem DTAP TEST V06.1 Active Problem Hypertension 401.9 Active 81562651 Problem Need for prophylactic vaccination and inoculation, Influenza V04.81 Active 885910984 Problem Myalgia M79.1 Active 54441212 Problem Fatigue, unspecified type R53.83 Active 15744878 Problem Exposure to hepatitis C Z20.5 Active 530439815 Problem Vasomotor rhinitis J30.0 Active 5456046 Problem Chronic fatigue R53.82 Active 91637386 Problem Pain in joint, site unspecified 719.40 Active 58740931 Problem Pain in joint, lower leg 719.46 Active 212690534 Problem Abdominal pain, unspecified site 789.00 Active 19964310 Problem Arthralgia, unspecified joint M25.50 Active 83801314 Problem Tick bite, sequela W57.XXXS Active 28903587 Problem Essential hypertension I10 Active 70171298 Problem Non-intractable cyclical vomiting with nausea G43.A0 Active 61428064 Problem Other emphysema 492.8 Active 51963025 Problem Acute sinusitis, unspecified 461.9 Active 86932632 Problem Celiac disease 579.0 Active 697488925 Problem Diverticulitis of colon (without mention of hemorrhage) 562.11 Active 179623938 Problem Nondependent tobacco use disorder 305.1 Active 471633694 Problem Chronic hepatitis C without hepatic coma B18.2 Active 158761193 Problem Essential hypertension, benign 401.1 Active 8572433 Problem Hordeolum externum 373.11 Active 6148544 ALLERGIES No Information ENCOUNTERS Encounter Location Date Diagnosis [facility] [id number] [place] [address] 48588 -9218 09 Aug, 2017 Bronchitis J40 ; Acute pharyngitis, unspecified etiology J02.9 and Vasomotor rhinitis J30.0 [place] [address] 0[address]11- 5201 Jun, Chronic fatigue R53.82 ; Weight gain R63.5 ; Acne, unspecified acne type L70.9 and Snoring R06.83 [place] [address] 37826- 1685 Apr, Chronic hepatitis C without hepatic coma B18.2 [facility] [address] [address]48- 0210 20 Feb, 2017 Chronic hepatitis C without hepatic coma B18.2 [place] [address] 91021- 4313 Feb, Allergy, initial encounter T78.40XA [place] [id number] [place] [address] 04823- 8672 13 Feb, 2017 Chronic hepatitis C without hepatic coma B18.2 [facility] [id number] [place] [address] 36143- 7384 Dec, Non-intractable cyclical vomiting with nausea G43.A0 ; Essential hypertension I10 and Allergy, initial encounter T78.40XA [place] [address] 51324- 4166 14 Sep, 2016 Chronic hepatitis C without hepatic coma B18.2 [place] [address] 62027- 5943 Sep, [facility] [id number] [place] [address] 36828- 9664 Apr, Common wart B07.8 [facility] [id number] [place] [address] 02953- 6454 Mar, Viral warts, unspecified type B07.9 [facility] [id number] [place] [address] 50741- 4126 Mar, [facility] [id number] [place] [address] 44406- 9536 Mar, Chronic hepatitis C without hepatic coma B18.2 [facility] [id number] [place] [address] 61206- 3252 Feb, [facility] [id number] [place] [address] 54075- 7356 Feb, Chronic hepatitis C without hepatic coma B18.2 [facility] [id number] [place] [address] 30877- 7619 Feb, Plantar fasciitis, bilateral M72.2 [facility] [id number] [place] [address] 70688- 3565 Dec, [facility] [id number] [place] [address] 98284- 3916 Dec, [facility] [id number] [place] [address] 25174- 5868 Nov, Pain of left foot M79.672 ; Pain in right foot M79.671 and Tick bite, sequela W57.XXXS [facility] [id number] [place] [address] 51645- 9319 Nov, Pain of left foot M79.672 ; Pain in right foot M79.671 and Tick bite, sequela W57.XXXS [facility] [id number] [place] [address] 00596- 0847 Nov, Chronic hepatitis C without hepatic coma B18.2 [place] [id number] [place] [address] 93519- 4777 Nov, [place] [address] 48403- 8154 Nov, Chronic hepatitis C without hepatic coma B18.2 [place] [address] 40974- 8052 16 Nov, 2015 Myalgia M79.1 ; Arthralgia, unspecified joint M25.50 ; Fatigue, unspecified type R53.83 ; Tick bite, sequela W57.XXXS and Exposure to hepatitis C Z20.5 [place] [address] 85325- 8950 October, [place] [address] 21292- 9002 May, Foot pain, unspecified laterality M79.673 ; Left knee pain M25.562 and Viral warts, unspecified type B07.9 [place] [address] 21955- 3882 Mar, [place] [address] 97853- 6158 Mar, Spider bite, accidental or unintentional, initial encounter T63.301A ; Right knee pain M25.561 and Essential hypertension I10 [place] [address] 03558- 6909 Mar, [place] [address] 66813- 2823 Dec, Abdominal pain 789.00 and Hemangioma 228.[address] 76353- 6705 Nov, Leg pain 729.5 ; Plantar fasciitis 728.71 and Hypertension 401.9 [place] [address] 54167- 1202 Nov, [facility] [place] [facility] [address] [id number] [place] [address]- 8368 October, [facility] [place] [facility] [address] [id number] [place] [address]- 3645 October, [facility] [place] [facility] [address] [id number] [place] [address]- 8897 Sep, [facility] [place] [facility] [address] [id number] [place] [address]- 9111 Sep, [facility] [place] [facility] [address] [id number] [place] [address]- 1794 Aug, [facility] [place] [facility] [address] [id number] [place] [address]- 8372 Aug, [facility] [place] [facility] [address] [id number] [place] [address]- 0209 Jul, [facility] [place] [facility] [address] [id number], [place] [address]- 8007 Jul, [facility] [place] [facility] [address] [id number] [place] [address]- 8574 Jun, [facility] [place] [facility] [address] [id number] [place] [address]- 7468 Jun, [facility] [place] [facility] [address] [id number], [place] [address]- 3888 Jun, [facility] [place] [facility] [address] [id number], [place] [address]- 1773 Jun, [facility] [place] [facility] [address] [id number] [place] [address]- 8614 Jun, [facility] [place] [facility] [address] [id number] [place] [address]- 8707 Jun, [facility] [place] [facility] [address] [id number] [place] [address]- 8409 Jun, [facility] [place] [facility] [address] [id number] [place] [address]- 5988 15 Jun, 2014 [facility] [place] [facility] [address] [id number] [place] [address]- 8882 Jun, [facility] [place] [facility] [address] [id number] [place] [address]- 4654 Jun, [facility] [place] [facility] [address] [id number] [place] [address]- 7395 Jun, [facility] [place] [facility] [address] [id number] [place] [address]- 2895 Jun, [facility] [place] [facility] [address] [id number] [place] [address]- 3464 Jun, [facility] [place] [facility] [address] [id number] [place] [address]- 5870 May, [facility] [place] [facility] [address] [id number] [place] [address]- 6418 May, [facility] [place] [facility] [address] [id number] [place] [address]- 7627 May, [facility] [place] [facility] [address] [id number] [place] [address]- 5775 Feb, [facility] [place] [facility] [address] [id number] [place] [address]- 9240 Feb, [facility] [place] [facility] [address] [id number] [place] [address]- 0171 Jan, [facility] [place] [facility] [address] [id number] [place] [address]- 8011 Jan, [facility] [place] [facility] [address] [id number] [place] [address]- 8017 Dec, [facility] [place] [facility] [address] [id number] [place] [address]- 1683 Dec, [facility] [place] [facility] [address] [id number] [place] [address]- 8070 May, [facility] [place] [facility] [address] [id number] [place] [address]- 1519 May, [facility] [address] [id number] [place] [address]- 8030 24 Sep, 2012 [facility] [place] [facility] [address] [id number] [place] [address]- 9884 Jul, [facility] [address] [id number] [place] [address]- 9644 Jul, [facility] [address] [id number] [place] [address]- 8547 May, [facility] [address] [id number] [place] [address]- 6130 May, [facility] [address] [id number] [place] [address]396 May, [facility] [address] [id number] [place] [address] Mar, [facility] [address] [id number] [place] [address] Feb, [facility] [address] [id number] [place] [address] Dec, [facility] [address] [id number] [place] [address] October, [facility] [address] [id number] [place] [address] 30 Sep, 2011 [facility] [place] [facility] [address] [id number] [place] [address] Sep, [facility] [place] [facility] [address] [id number] [place] [address] Sep, [facility] [place] [facility] [address] [id number] [place] [address] Jul, [facility] [place] [facility] [address] [id number] [place] [address] Apr, [facility] [address] [facility] [id number] [place] [address] Mar, IMMUNIZATIONS No Known Immunizations SOCIAL HISTORY Never Assessed REASON FOR VISIT Lab (walk-in) PLAN OF CARE VITAL SIGNS MEDICATIONS No Known Medications RESULTS No Results PROCEDURES Procedure Date Ordered Result Body Site LAB NOT BILLED BY [facility] Apr 29, 2017 VENIPUNCT, ROUTINE* Apr 29, 2017 INSTRUCTIONS MEDICATIONS ADMINISTERED No Known Medications MEDICAL (GENERAL) HISTORY Type Description Date Medical History hypertension Medical History diverticulitis Medical History Hepatitis C Surgical History orthopedic surgery-right shoulder Hospitalization History Hospitalization for surgery only
--- OUTSIDE RECORDS SUMMARY | 2018-06-22 15:12 | XMS REPORT ---
Author Author ADRIÁN SHARP [facility] Address [address] [place] [address] Care Team Providers Care Skid Road Worker Name Role Phone ADRIÁN SHARP Unavailable PROBLEMS Type Condition ICD9-CM Code OTH04-VE Code Onset Dates Condition Status SNOMED Code Problem Special screening for malignant neoplasms, colon V76.51 Active 228143648 Problem Screening for malignant neoplasm of the cervix V76.2 Active 142373161 Problem Unspecified breast screening V76.10 Active 623345165 Problem Other specified counseling V65.49 Active 785429609 Problem Special screening examination, human papillomavirus [HPV] V73.81 Active 269113810 Problem Routine gynecological examination V72.31 Active [id number] Problem Leg pain 729.5 Active 63751676 Problem DTAP TEST V06.1 Active Problem Hypertension 401.9 Active 41966756 Problem Need for prophylactic vaccination and inoculation, Influenza V04.81 Active 088473481 Problem Myalgia M79.1 Active 92953682 Problem Fatigue, unspecified type R53.83 Active 01673087 Problem Exposure to hepatitis C Z20.5 Active 342885725 Problem Vasomotor rhinitis J30.0 Active 6325977 Problem Chronic fatigue R53.82 Active 53561058 Problem Pain in joint, site unspecified 719.40 Active 51057721 Problem Pain in joint, lower leg 719.46 Active 153354717 Problem Abdominal pain, unspecified site 789.00 Active 03741796 Problem Arthralgia, unspecified joint M25.50 Active 75825600 Problem Tick bite, sequela W57.XXXS Active 24967016 Problem Essential hypertension I10 Active 10243936 Problem Non-intractable cyclical vomiting with nausea G43.A0 Active 18266187 Problem Other emphysema 492.8 Active 81283599 Problem Acute sinusitis, unspecified 461.9 Active 26092924 Problem Celiac disease 579.0 Active 317032730 Problem Diverticulitis of colon (without mention of hemorrhage) 562.11 Active 275944237 Problem Nondependent tobacco use disorder 305.1 Active 385366119 Problem Chronic hepatitis C without hepatic coma B18.2 Active 509278594 Problem Essential hypertension, benign 401.1 Active 8377314 Problem Hordeolum externum 373.11 Active 3770351 ALLERGIES No Information ENCOUNTERS Encounter Location Date Diagnosis [facility] [id number] [place] [address] 09 Aug, 2017 Bronchitis J40 ; Acute pharyngitis, unspecified etiology J02.9 and Vasomotor rhinitis J30.0 [place] [address] [address] Jun, Chronic fatigue R53.82 ; Weight gain R63.5 ; Acne, unspecified acne type L70.9 and Snoring R06.83 [place] [address] [address]- [address] Apr, Chronic hepatitis C without hepatic coma B18.2 [facility] [address] [address]- [address] 20 Feb, 2017 Chronic hepatitis C without hepatic coma B18.2 [place] [address] 31666- [address]393 Feb, Allergy, initial encounter T78.40XA [place] [id number] [place] [address] 61459- 1225 13 Feb, 2017 Chronic hepatitis C without hepatic coma B18.2 [facility] [id number] [place] [address] 06021- 6671 Dec, Non-intractable cyclical vomiting with nausea G43.A0 ; Essential hypertension I10 and Allergy, initial encounter T78.40XA [place] [address] [address]- [address] 14 Sep, 2016 Chronic hepatitis C without hepatic coma B18.2 [place] [address] 9[address]43- 9510 Sep, [facility] [id number] [place] [address] 04242- 8388 Apr, Common wart B07.8 [facility] [id number] [place] [address] 35877- 2435 Mar, Viral warts, unspecified type B07.9 [facility] [id number] [place] [address] 34719- 6016 Mar, [facility] [id number] [place] [address] 91639- 8833 Mar, Chronic hepatitis C without hepatic coma B18.2 [facility] [id number] [place] [address] 01462- 7708 Feb, [facility] [id number] [place] [address] 16913- 3187 Feb, Chronic hepatitis C without hepatic coma B18.2 [facility] [id number] [place] [address] 03853- 6793 Feb, Plantar fasciitis, bilateral M72.2 [facility] [id number] [place] [address] 44012- 3582 Dec, [facility] [id number] [place] [address] 71629- 5914 Dec, [facility] [id number] [place] [address] 41890- 3420 Nov, Pain of left foot M79.672 ; Pain in right foot M79.671 and Tick bite, sequela W57.XXXS [facility] [id number] [place] [address] 53744- 7411 Nov, Pain of left foot M79.672 ; Pain in right foot M79.671 and Tick bite, sequela W57.XXXS [facility] [id number] [place] [address] 62406- 3015 Nov, Chronic hepatitis C without hepatic coma B18.2 [place] [id number] [place] [address] 88126- 0971 Nov, Chronic hepatitis C without hepatic coma B18.2 [place] [address] 08213- 5637 Nov, [place] [address] 83709- 4444 Nov, Myalgia M79.1 ; Arthralgia, unspecified joint M25.50 ; Fatigue, unspecified type R53.83 ; Tick bite, sequela W57.XXXS and Exposure to hepatitis C Z20.5 [place] [address] 8[address]- 8824 October, [place] [address] 80701- 1463 May, Foot pain, unspecified laterality M79.673 ; Left knee pain M25.562 and Viral warts, unspecified type B07.9 [place] [address] [address]65- 3847 Mar, [address] [address]- 9485 Mar, Spider bite, accidental or unintentional, initial encounter T63.301A ; Right knee pain M25.561 and Essential hypertension I10 [address] [address]- 2485 Mar, [place] [address] [address]- 9783 Dec, Abdominal pain 789.00 and Hemangioma 228.[address] 19074- 1830 Nov, Leg pain 729.5 ; Plantar fasciitis 728.71 and Hypertension 401.[address] 31419- 8516 Nov, [facility] [place] [facility] [address] [id number] [place] [address] 9305 October, [facility] [place] [facility] [address] [id number] [place] [address]- 3639 October, [facility] [place] [facility] [address] [id number] [place] [address]- 6380 Sep, [facility] [place] [facility] [address] [id number] [place] [address]- 2104 Sep, [facility] [place] [facility] [address] [id number] [place] [address]- 3919 Aug, [facility] [place] [facility] [address] [id number] [place] [address]- 3142 Aug, [facility] [place] [facility] [address] [id number] [place] [address]- 5952 Jul, [facility] [place] [facility] [address] [id number], [place] [address] 1915 Jul, [facility] [place] [facility] [address] [id number] [place] [address]- 4250 Jun, [facility] [place] [facility] [address] [id number] [place] [address]- 5808 Jun, [facility] [place] [facility] [address] [id number], [place] [address]- 0310 Jun, [facility] [place] [facility] [address] [id number], [place] [address]- 9899 Jun, [facility] [place] [facility] [address] [id number] [place] [address]- 3707 Jun, [facility] [place] [facility] [address] [id number] [place] [address]- 5000 Jun, [facility] [place] [facility] [address] [id number] [place] [address]- 4357 Jun, [facility] [place] [facility] [address] [id number] [place] [address]- 8770 15 Jun, 2014 [facility] [place] [facility] [address] [id number] [place] [address]- 3755 Jun, [facility] [place] [facility] [address] [id number] [place] [address]- 0979 Jun, [facility] [place] [facility] [address] [id number] [place] [address]- 9345 Jun, [facility] [place] [facility] [address] [id number] [place] [address]- 7246 Jun, [facility] [place] [facility] [address] [id number] [place] [address]- 3820 Jun, [facility] [place] [facility] [address] [id number] [place] [address]- 7247 May, [facility] [place] [facility] [address] [id number] [place] [address]- 3937 May, [facility] [place] [facility] [address] [id number] [place] [address]- 6058 May, [facility] [place] [facility] [address] [id number] [place] [address]- 9347 Feb, [facility] [place] [facility] [address] [id number] [place] [address]- 1656 Feb, [facility] [place] [facility] [address] [id number] [place] [address]- 3066 Jan, [facility] [place] [facility] [address] [id number] [place] [address]- 9185 Jan, [facility] [place] [facility] [address] [id number] [place] [address]- 2358 Dec, [facility] [place] [facility] [address] [id number] [place] [address]- 8611 Dec, [facility] [place] [facility] [address] [id number] [place] [address]- 2050 May, [facility] [place] [facility] [address] [id number] [place] [address]- 2730 May, [facility] [address] [id number] [place] [address]- 3582 24 Sep, 2012 [facility] [place] [facility] [address] [id number] [place] [address]- 3433 Jul, [facility] [address] [id number] [place] [address]- 1306 Jul, [facility] [address] [id number] [place] [address]- 9661 May, [facility] [address] [id number] [place] [address]- 1831 May, [facility] [address] [id number] [place] [address] May, [facility] [address] [id number] [place] [address]- 7767 Mar, [facility] [address] [id number] [place] [address]- 4046 Feb, [facility] [address] [id number] [place] [address]- 3363 Dec, [facility] [address] [id number] [place] [address]- 7719 October, [facility] [address] [id number] [place] [address]- 6725 30 Sep, 2011 [facility] [place] [facility] [address] [id number] [place] [address]- 4456 Sep, [facility] [place] [facility] [address] [id number] [place] [address]- 0240 Sep, [facility] [place] [facility] [address] [id number] [place] [address]- 3277 Jul, [facility] [place] [facility] [address] [id number] [place] [address]- 6234 Apr, [facility] [address] [facility] [id number] [place] [address]- 0925 Mar, IMMUNIZATIONS No Known Immunizations SOCIAL HISTORY Never Assessed REASON FOR VISIT Lab (walk-in) PLAN OF CARE VITAL SIGNS MEDICATIONS No Known Medications RESULTS Name Result Date Reference Range HEP C PCR QUANT (Non-Graph)-APPROVAL REQUIRED 2017-03-10 Hepatitis C Quantitation QNS HCV log10 Test Information: Request Problem TNP CBC 2017-03-10 WBC 6.3 3.4-10.8 RBC 4.30 3.77-5.28 Hemoglobin 12.9 11.1-15.9 Hematocrit 38.2 34.0-46.6 MCV 89 79-97 MCH 30.0 26.6-33.0 MCHC 33.8 31.5-35.7 RDW 13.3 12.3-15.4 Platelets 292 150-379 Neutrophils 43 Lymphs 41 Monocytes 10 Eos 5 Basos 1 Neutrophils (Absolute) 2.7 1.4-7.0 Lymphs (Absolute) 2.6 0.7-3.1 Monocytes(Absolute) 0.7 0.1-0.9 Eos (Absolute) 0.3 0.0-0.4 Baso (Absolute) 0.1 0.0-0.2 Immature Granulocytes 0 Immature Grans (Abs) 0.0 0.0-0.1 CMP 2017-03-10 Glucose, Serum 92 65-99 BUN 19 8-27 Creatinine, Serum 0.89 0.57-1.00 eGFR If NonAfricn Am 70 >59 eGFR If Africn Am 81 >59 BUN/Creatinine Ratio 21 12-28 Sodium, Serum 143 134-144 Potassium, Serum 4.2 3.5-5.2 Chloride, Serum 104 96-106 Carbon Dioxide, Total 24 18-29 Calcium, Serum 9.5 8.7-10.3 Protein, Total, Serum 6.9 6.0-8.5 Albumin, Serum 4.6 3.6-4.8 Globulin, Total 2.3 1.5-4.5 A/G Ratio 2.0 1.2-2.2 Bilirubin, Total 0.3 0.0-1.2 Alkaline Phosphatase, S 67 39-117 AST (SGOT) 19 0-40 ALT (SGPT) 19 0-32 PROCEDURES Procedure Date Ordered Result Body [facility] Mar 10, 2017 VENIPUNCT, ROUTINE* Mar 10, 2017 INSTRUCTIONS MEDICATIONS ADMINISTERED No Known Medications MEDICAL (GENERAL) HISTORY Type Description Date Medical History hypertension Medical History diverticulitis Medical History Hepatitis C Surgical History orthopedic surgery-right shoulder Hospitalization History Hospitalization for surgery only
--- OUTSIDE RECORDS SUMMARY | 2018-06-22 15:13 | XMS REPORT | Continuity of Care Document ---
Author Author [facility] [place] [facility] Address Unknown Phone Unavailable Allergies Active Description Code Type Severity Reaction Onset Reported/Identified Relationship to Patient Clinical Status Yes Lisinopril HCTZ Drug Allergy 12/24/2009 Yes metoprolol Drug Allergy N/A N/A 10/22/2011 Yes metoprolol Drug Allergy 10/22/2011 Yes Accuretic 20-25 mg tablet Drug Allergy N/A N/A 08/11/2012 Yes Accuretic 20-25 mg tablet Drug Allergy 08/11/2012 Yes gluten Food Allergy N/A N/A 10/19/2012 Yes No Known Drug Allergies [id number] Drug Allergy Mild N/A 02/19/2015 Medications There is no data. Problems Date Dx Coded Attending Type Code Diagnosis Diagnosed By 06/04/2008 466.0 BRONCHITIS, ACUTE 06/04/2008 S[place] APRNA S 466.0 BRONCHITIS, ACUTE 06/04/2008 466.0 BRONCHITIS, ACUTE 06/04/2008 ELEANOR JEREZ APRNYL A 466.0 BRONCHITIS, ACUTE 06/04/2008 KHADIJAH SHARP APRNNDA S 466.0 BRONCHITIS, ACUTE 06/04/2008 JAYDA BENOIT AMADA A 466.0 BRONCHITIS, ACUTE 06/04/2008 KHADIJAH SHARP APRNNDA S 466.0 BRONCHITIS, ACUTE 06/04/2008 ARON BENOIT ADRIÁN S 466.0 BRONCHITIS, ACUTE 06/04/2008 ARON BENOIT ADRIÁN S 466.0 BRONCHITIS, ACUTE 06/04/2008 PHI SANCHEZ APRN 466.0 BRONCHITIS, ACUTE 09/17/2009 401.9 Combined Systolic And Diastolic Elevation 09/17/2009 ADRIÁN SHARP APRN S 401.9 Combined Systolic And Diastolic Elevation 09/17/2009 401.9 Combined Systolic And Diastolic Elevation 09/17/2009 ELEANOR JEREZ APRNYL A 401.9 Combined Systolic And Diastolic Elevation 09/17/2009 ARON SPORTS STATISTICIAN, ADRIÁN S 401.9 Combined Systolic And Diastolic Elevation 09/17/2009 JAYDA SPORTS STATISTICIAN, AMADA A 401.9 Combined Systolic And Diastolic Elevation 09/17/2009 ARON SPORTS STATISTICIAN, ADRIÁN S 401.9 Combined Systolic And Diastolic Elevation 09/17/2009 ARON SPORTS STATISTICIAN, ADRIÁN S 401.9 Combined Systolic And Diastolic Elevation 09/17/2009 ARON SPORTS STATISTICIAN, ADRIÁN S 401.9 Combined Systolic And Diastolic Elevation 09/17/2009 LAURA SPORTS STATISTICIAN, PHI R 401.9 Combined Systolic And Diastolic Elevation 12/04/2009 216.3 BENIGN NEOPLASM OF SKIN OF OTHER AND UNSPECIFIED PARTS OF FACE 12/04/2009 784.91 POSTNASAL DRIP 12/04/2009 ARON SPORTS STATISTICIAN, ADRIÁN S 216.3 BENIGN NEOPLASM OF SKIN OF OTHER AND UNSPECIFIED PARTS OF FACE 12/04/2009 ARON SPORTS STATISTICIAN, ADRIÁN S 784.91 POSTNASAL DRIP 12/04/2009 216.3 BENIGN NEOPLASM OF SKIN OF OTHER AND UNSPECIFIED PARTS OF FACE 12/04/2009 784.91 POSTNASAL DRIP 12/04/2009 RAJOTTE SPORTS STATISTICIAN, WAYNE A 216.3 BENIGN NEOPLASM OF SKIN OF OTHER AND UNSPECIFIED PARTS OF FACE 12/04/2009 RAJOTTE SPOR[employer] STATISTICIAN, WAYNE A 784.91 POSTNASAL DRIP 12/04/2009 ARON SPORTS STATISTICIAN, ADRIÁN S 216.3 BENIGN NEOPLASM OF SKIN OF OTHER AND UNSPECIFIED PARTS OF FACE 12/04/2009 ARON SPORTS STATISTICIAN, ADRÁIN S 784.91 POSTNASAL DRIP 12/04/2009 JAYDA SPORTS STATISTICIAN, AMADA A 216.3 BENIGN NEOPLASM OF SKIN OF OTHER AND UNSPECIFIED PARTS OF FACE 12/04/2009 JAYDA SPORTS STATISTICIAN, AMADA A 784.91 POSTNASAL DRIP 12/04/2009 ARON SPORTS STATISTICIAN, ADRIÁN S 216.3 BENIGN NEOPLASM OF SKIN OF OTHER AND UNSPECIFIED PARTS OF FACE 12/04/2009 ARON SPORTS STATISTICIAN, ADRIÁN S 784.91 POSTNASAL DRIP 12/04/2009 ARON SPORTS STATISTICIAN, ADRIÁN S 216.3 BENIGN NEOPLASM OF SKIN OF OTHER AND UNSPECIFIED PARTS OF FACE 12/04/2009 ARON SPORTS STATISTICIAN, ADRIÁN S 784.91 POSTNASAL DRIP 12/04/2009 ARON SPORTS STATISTICIAN, ADRIÁN S 216.3 BENIGN NEOPLASM OF SKIN OF OTHER AND UNSPECIFIED PARTS OF FACE 12/04/2009 ARON SPORTS STATISTICIAN, ADRIÁN S 784.91 POSTNASAL DRIP 12/04/2009 LAURA SPORTS STATISTICIAN, PHI R 216.3 BENIGN NEOPLASM OF SKIN OF OTHER AND UNSPECIFIED PARTS OF FACE 12/04/2009 LAURA MENONN, PHI R 784.91 POSTNASAL DRIP 12/24/2009 786.2 COUGH 12/24/2009 ARON SPORTS STATISTICIAN, ADRIÁN S 786.2 COUGH 12/24/2009 786.2 COUGH 12/24/2009 RAJOTTE [employer] STATISTICIAN, WAYNE A 786.2 COUGH 12/24/2009 ARON SPORTS STATISTICIAN, ADRIÁN S 786.2 COUGH 12/24/2009 JAYDA SPORTS STATISTICIAN, AMADA A 786.2 COUGH 12/24/2009 ARON SPORTS STATISTICIAN, ADRIÁN S 786.2 COUGH 12/24/2009 ARON SPORTS STATISTICIAN, ADRIÁN S 786.2 COUGH 12/24/2009 ARON SPORTS STATISTICIAN, ADRIÁN S 786.2 COUGH 12/24/2009 LAURA SPORTS STATISTICIAN, PHI R 786.2 COUGH 07/30/2011 373.11 HORDEOLUM EXTERNUM 07/30/2011 V04.81 FLU DX (3 YRS AND ABOVE, IM) 07/30/2011 ARON SPORTS STATISTICIAN, ADRIÁN S 373.11 HORDEOLUM EXTERNUM 07/30/2011 ARON SPORTS STATISTICIAN, ADRIÁN S V04.81 FLU DX (3 YRS AND ABOVE, IM) 07/30/2011 373.11 HORDEOLUM EXTERNUM 07/30/2011 V04.81 FLU DX (3 YRS AND ABOVE, IM) 07/30/2011 RAJOTTE SPOR[employer] STATISTICIAN, WAYNE A 373.11 HORDEOLUM EXTERNUM 07/30/2011 RAJOTTE SPORTS STATISTICIAN, WAYNE A V04.81 FLU DX (3 YRS AND ABOVE, IM) 07/30/2011 ARON SPORTS STATISTICIAN, ADRIÁN S 373.11 HORDEOLUM EXTERNUM 07/30/2011 ARON SPORTS STATISTICIAN, ADRIÁN S V04.81 FLU DX (3 YRS AND ABOVE, IM) 07/30/2011 JAYDA SPORTS STATISTICIAN, AMADA A 373.11 HORDEOLUM EXTERNUM 07/30/2011 JAYDA SPORTS STATISTICIAN, AMADA A V04.81 FLU DX (3 YRS AND ABOVE, IM) 07/30/2011 ARON SPORTS STATISTICIAN, ADRIÁN S 373.11 HORDEOLUM EXTERNUM 07/30/2011 ARON SPORTS STATISTICIAN, ADRIÁN S V04.81 FLU DX (3 YRS AND ABOVE, IM) 07/30/2011 ARON SPORTS STATISTICIAN, ADRIÁN S 373.11 HORDEOLUM EXTERNUM 07/30/2011 ARON SPORTS STATISTICIAN, ADRIÁN S V04.81 FLU DX (3 YRS AND ABOVE, IM) 07/30/2011 ARON SPORTS STATISTICIAN, ADRIÁN S 373.11 HORDEOLUM EXTERNUM 07/30/2011 ARON SPORTS STATISTICIAN, ADRIÁN S V04.81 FLU DX (3 YRS AND ABOVE, IM) 07/30/2011 TANIA SANCHEZ APRNRICIA R 373.11 HORDEOLUM EXTERNUM 07/30/2011 TANIA SANCHEZ APRNRICIA R V04.81 FLU DX (3 YRS AND ABOVE, IM) 10/22/2011 562.11 DIVERTICULITIS OF COLON 10/22/2011 [place] APRNA S 562.11 DIVERTICULITIS OF COLON 10/22/2011 562.11 DIVERTICULITIS OF COLON 10/22/2011 WAYNE JEREZ APRN A 562.11 DIVERTICULITIS OF COLON 10/22/2011 [place] APRNA S 562.11 DIVERTICULITIS OF COLON 10/22/2011 JAYDA BENOIT AMADA A 562.11 DIVERTICULITIS OF COLON 10/22/2011 KHADIJAH SHARP APRNNDA S 562.11 DIVERTICULITIS OF COLON 10/22/2011 [place] APRNA S 562.11 DIVERTICULITIS OF COLON 10/22/2011 KHADIJAH SHARP APRNNDA S 562.11 DIVERTICULITIS OF COLON 10/22/2011 TANIA SANCHEZ APRNRICIA R 562.11 DIVERTICULITIS OF COLON 06/15/2012 305.1 NONDEPENDENT TOBACCO USE DISORDER 06/15/2012 492.8 OTHER EMPHYSEMA 06/15/2012 ARON SPORTS STATISTICIAN, ADRIÁN S 305.1 NONDEPENDENT TOBACCO USE DISORDER 06/15/2012 ARON SPORTS STATISTICIAN, ADRIÁN S 492.8 OTHER EMPHYSEMA 06/15/2012 305.1 NONDEPENDENT TOBACCO USE DISORDER 06/15/2012 492.8 OTHER EMPHYSEMA 06/15/2012 RAJOTTE SPOR[employer] STATISTICIAN, WAYNE A 305.1 NONDEPENDENT TOBACCO USE DISORDER 06/15/2012 RAJOTTE SPORTS STATISTICIAN, WAYNE A 492.8 OTHER EMPHYSEMA 06/15/2012 ARON SPORTS STATISTICIAN, ADRIÁN S 305.1 NONDEPENDENT TOBACCO USE DISORDER 06/15/2012 ARON SPORTS STATISTICIAN, ADRIÁN S 492.8 OTHER EMPHYSEMA 06/15/2012 JAYDA SPORTS STATISTICIAN, AMADA A 305.1 NONDEPENDENT TOBACCO USE DISORDER 06/15/2012 JAYDA SPORTS STATISTICIAN, AMADA A 492.8 OTHER EMPHYSEMA 06/15/2012 ARON SPORTS STATISTICIAN, ADRIÁN S 305.1 NONDEPENDENT TOBACCO USE DISORDER 06/15/2012 ARON SPORTS STATISTICIAN, ADRIÁN S 492.8 OTHER EMPHYSEMA 06/15/2012 ARON SPORTS STATISTICIAN, ADRIÁN S 305.1 NONDEPENDENT TOBACCO USE DISORDER 06/15/2012 ARON SPORTS STATISTICIAN, ADRIÁN S 492.8 OTHER EMPHYSEMA 06/15/2012 ARON SPORTS STATISTICIAN, ADRIÁN S 305.1 NONDEPENDENT TOBACCO USE DISORDER 06/15/2012 ARON SPORTS STATISTICIAN, ADRIÁN S 492.8 OTHER EMPHYSEMA 06/15/2012 LAURA SPORTS STATISTICIAN, PHI R 305.1 NONDEPENDENT TOBACCO USE DISORDER 06/15/2012 LAURA SPORTS STATISTICIAN, PHI R 492.8 OTHER EMPHYSEMA 08/11/2012 ARON SPORTS STATISTICIAN, ADRIÁN S V06.1 TDAP DX 08/11/2012 V06.1 TDAP DX 08/11/2012 NITAE SPORTS STATISTICIAN, WAYNE A V06.1 TDAP DX 08/11/2012 ARON SPORTS STATISTICIAN, ADRIÁN S V06.1 TDAP DX 08/11/2012 JAYDA SPORTS STATISTICIAN, AMADA A V06.1 TDAP DX 08/11/2012 ARON SPORTS STATISTICIAN, ADRIÁN S V06.1 TDAP DX 08/11/2012 ARON SPORTS STATISTICIAN, ADRIÁN S V06.1 TDAP DX 08/11/2012 ARON SPORTS STATISTICIAN, ADRIÁN S V06.1 TDAP DX 08/11/2012 TANIA SANCHEZ APRNRICIA R V06.1 TDAP DX 10/19/2012 579.0 CELIAC DISEASE 10/19/2012 SOLITARIO SPORTS STATISTICIAN, WAYNE A 579.0 CELIAC DISEASE 10/19/2012 ARON SPORTS STATISTICIAN, ADRIÁN S 579.0 CELIAC DISEASE 10/19/2012 JAYDA SPORTS STATISTICIAN, AMADA A 579.0 CELIAC DISEASE 10/19/2012 ARON SPORTS STATISTICIAN, ADRIÁN S 579.0 CELIAC DISEASE 10/19/2012 ARON SPORTS STATISTICIAN, ADRIÁN S 579.0 CELIAC DISEASE 10/19/2012 ARON SPORTS STATISTICIAN, ADRIÁN S 579.0 CELIAC DISEASE 10/19/2012 TANIA SANCHEZ APRNRICIA R 579.0 CELIAC DISEASE 06/19/2013 TARAHRILEY MENONN, WAYNE A 461.9 SINUSITIS ACUTE 06/19/2013 ARON SPORTS STATISTICIAN, ADRIÁN S 461.9 SINUSITIS ACUTE 06/19/2013 JAYDA MENONN, AMADA A 461.9 SINUSITIS ACUTE 06/19/2013 ARON SPORTS STATISTICIAN, ARDIÁN S 461.9 SINUSITIS ACUTE 06/19/2013 ARON SPORTS STATISTICIAN, ADRIÁN S 461.9 SINUSITIS ACUTE 06/19/2013 ARON SPORTS STATISTICIAN, ADRIÁN S 461.9 SINUSITIS ACUTE 06/19/2013 NEGRITO SANCHEZ APRNIA R 461.9 SINUSITIS ACUTE 06/18/2014 JAYDA SPORTS STATISTICIAN, AMADA A V65.49 OTHER SPECIFIED COUNSELING 06/18/2014 JAYDA APRN, AMADA A V72.31 REGRINDER OPERATOR EXAM, ROUTINE 06/18/2014 JAYDA BENOIT, AMADA A V73.81 HPV SCREENING 06/18/2014 JAYDA APRN, AMADA A V76.10 BREAST CANCER SCREENING 06/18/2014 JAYDA APRN, AMADA A V76.2 CERVICAL CANCER SCREENING (PAP SMEAR) 06/18/2014 KHADIJAH SHARP APRNNDA S V65.49 OTHER SPECIFIED COUNSELING 06/18/2014 ARON SPORTS STATISTICIAN, ADRIÁN S V72.31 REGRINDER OPERATOR EXAM, ROUTINE 06/18/2014 ARON SPORTS STATISTICIAN, ADRIÁN S V73.81 HPV SCREENING 06/18/2014 ARON BENOIT, ADRIÁN S V76.10 BREAST CANCER SCREENING 06/18/2014 ARON SPORTS STATISTICIAN, ADRIÁN S V76.2 CERVICAL CANCER SCREENING (PAP SMEAR) 06/18/2014 ARON SPORTS STATISTICIAN, ADRIÁN S V65.49 OTHER SPECIFIED COUNSELING 06/18/2014 ARON BENOIT ADRIÁN S V72.31 REGRINDER OPERATOR EXAM, ROUTINE 06/18/2014 ARON MENONN, ADRIÁN S V73.81 HPV SCREENING 06/18/2014 ARON BENOIT ADRIÁN S V76.10 BREAST CANCER SCREENING 06/18/2014 ARON BENOIT ADRIÁN S V76.2 CERVICAL CANCER SCREENING (PAP SMEAR) 06/18/2014 ARON BENOIT ADRIÁN S V65.49 OTHER SPECIFIED COUNSELING 06/18/2014 ARON BENOIT ADRIÁN S V72.31 REGRINDER OPERATOR EXAM, ROUTINE 06/18/2014 ARON BENOIT ADRIÁN S V73.81 HPV SCREENING 06/18/2014 ARON BENOIT, ADRIÁN S V76.10 BREAST CANCER SCREENING 06/18/2014 ARON BENOIT ADRIÁN S V76.2 CERVICAL CANCER SCREENING (PAP SMEAR) 06/18/2014 TANIA SANCHEZ APRNRICIA R V65.49 OTHER SPECIFIED COUNSELING 06/18/2014 LAURA BENOIT, PHI R V72.31 REGRINDER OPERATOR EXAM, ROUTINE 06/18/2014 LAURA BENOIT, PHI R V73.81 HPV SCREENING 06/18/2014 LAURA BENOIT, PHI R V76.10 BREAST CANCER SCREENING 06/18/2014 LAURA BENOIT, PHI R V76.2 CERVICAL CANCER SCREENING (PAP SMEAR) 06/27/2014 Ot 793.80 07/11/2014 KHADIJAH SHARP APRNNDA S 401.1 HYPERTENSION, BENIGN ESSENTIAL 07/11/2014 ARON BENOIT ADRIÁN S 719.46 PAIN- KNEE 07/11/2014 KHADIJAH SHARP APRNNDA S 789.00 ABDOMINAL PAIN UNSPECIFIED SITE 07/11/2014 ARON SPORTS STATISTICIAN, ADRIÁN S V76.51 COLON CANCER SCREENING 07/11/2014 ARON SPORTS STATISTICIAN, ADRIÁN S 401.1 HYPERTENSION, BENIGN ESSENTIAL 07/11/2014 ARON SPORTS STATISTICIAN, ADRIÁN S 719.46 PAIN- KNEE 07/11/2014 ARON SPORTS STATISTICIAN, ADRIÁN S 789.00 ABDOMINAL PAIN UNSPECIFIED SITE 07/11/2014 ARON SPORTS STATISTICIAN, ADRIÁN S V76.51 COLON CANCER SCREENING 07/11/2014 ARON SPORTS STATISTICIAN, ADRIÁN S 401.1 HYPERTENSION, BENIGN ESSENTIAL 07/11/2014 ARON SPORTS STATISTICIAN, ADRIÁN S 719.46 PAIN- KNEE 07/11/2014 ARON SPORTS STATISTICIAN, ADRIÁN S 789.00 ABDOMINAL PAIN UNSPECIFIED SITE 07/11/2014 ARON SPORTS STATISTICIAN, ADRIÁN S V76.51 COLON CANCER SCREENING 07/11/2014 LAURA SPORTS STATISTICIAN, PHI R 401.1 HYPERTENSION, BENIGN ESSENTIAL 07/11/2014 LAURA BENOIT, PHI R 719.46 PAIN- KNEE 07/11/2014 SANCHEZ SPORTS STATISTICIAN, PHI R 789.00 ABDOMINAL PAIN UNSPECIFIED SITE 07/11/2014 SANCHEZ SPORTS STATISTICIAN, PHI R V76.51 COLON CANCER SCREENING 08/13/2014 AMADA MONTELONGO SPORTS STATISTICIAN Ot V76.12 08/29/2014 ARON SPORTS STATISTICIAN, ADRIÁN S 719.40 ARTHRAIGIA UNSPEC 08/29/2014 SANCHEZ SPORTS STATISTICIAN, PHI R 719.40 ARTHRAIGIA UNSPEC 10/02/2014 LAURA BENOIT, PHI R 535.50 GASTRITIS UNSPEC 10/10/2014 LAURA SPORTS STATISTICIAN, PHI R 627.2 SYMPTOMATIC MENOPAUSAL OR FEMALE CLIMACTERIC STATES 10/10/2014 LAURA SPORTS STATISTICIAN, PHI R 788.63 URGENCY OF URINATION 02/19/2015 UTE KOTHARI, GISELE Cadena Ot 211.3 02/19/2015 UTE KOTHARI, GISELE Cadena Ot 562.10 02/19/2015 GISELE UNEGR MD Ot V76.51 12/30/2016 ROCHELLE HERRERA Ot I10 ESSENTIAL (PRIMARY) HYPERTENSION 12/30/2016 ROCHELLE HERRERA Ot M19.90 UNSPECIFIED OSTEOARTHRITIS, UNSPECIFIED 12/30/2016 ROCHELLE HERRERA Ot M79.1 MYALGIA 12/30/2016 ROCHELLE HERRERA JOHNNY Ot Z87.891 PERSONAL HISTORY OF NICOTINE DEPENDENCE 01/18/2017 ULYSSES MURILLO MD, Ot G43.A0 CYCLICAL VOMITING, NOT INTRACTABLE 01/18/2017 ULYSSES MURILLO MD, Ot K76.9 LIVER DISEASE, UNSPECIFIED 01/18/2017 ULYSSES MURILLO MD, Ot G43.A0 CYCLICAL VOMITING, NOT INTRACTABLE 01/18/2017 ULYSSES MURILLO MD, Ot K76.9 LIVER DISEASE, UNSPECIFIED 01/20/2017 ULYSSES MURILLO MD, Ot G43.A0 CYCLICAL VOMITING, NOT INTRACTABLE 01/20/2017 ULYSSES MURILLO MD, Ot K76.9 LIVER DISEASE, UNSPECIFIED 02/05/2017 ULYSSES MURILLO MD, Ot G43.A0 CYCLICAL VOMITING, NOT INTRACTABLE 02/05/2017 ULYSSES MURILLO MD, Ot K76.9 LIVER DISEASE, UNSPECIFIED 03/31/2018 ULYSSES MURILLO MD, Ot G43.A0 CYCLICAL VOMITING, NOT INTRACTABLE 03/31/2018 ULYSSES MURILLO MD, Ot K76.9 LIVER DISEASE, UNSPECIFIED 03/31/2018 ADRIÁN SHARP Ot Z12.31 ENCNTR SCREEN MAMMOGRAM FOR MALIGNANT NE 06/17/2018 ULYSSES MURILLO MD, Ot G43.A0 CYCLICAL VOMITING, NOT INTRACTABLE 06/17/2018 ULYSSES MURILLO MD, Ot K76.9 LIVER DISEASE, UNSPECIFIED Procedures Code Description Performed By Performed On [facility] Parminder Vu 08/11/2012 18733 MAMMOGRAM, SCREENING 06/18/2014 09755 PAP SMEAR 06/18/2014 Q0091 PAP SMEAR OBTAIN SMEAR 06/18/2014 07276 ROUTINE VENIPUNCTURE 07/11/2014 41562 XRAY KNEE LEFT 3 VIEWS 07/11/2014 70810 UA LONG DIP 07/11/2014 64046 CBC 07/11/2014 4951283 GFR CALC (RESULT ONLY) 07/11/2014 95724 CMP 07/11/2014 06277 CELIAC DISEASE ANALYZER 07/13/2014 50920 ROUTINE VENIPUNCTURE 10/02/2014 20773 URIC ACID 10/02/2014 74115 CRP 10/02/2014 ANAANA TALAT ANALYZER (SCREEN) 10/03/2014 17040 ASO 10/03/2014 84275 RA FACTOR 10/05/2014 05537 UA W/ CULTURE IF INDICATED 10/10/2014 Results Test Result Range CBC With Differential/Platelet - 04/17/16 10:59 WBC 6.9 x10E3/uL 3.4-10.8 RBC 4.64 x10E6/uL 3.77-5.28 Hemoglobin 14.4 g/dL 11.1-15.9 Hematocrit 42.2 % 34.0-46.6 MCV 91 fL 79-97 MCH 31.0 pg 26.6-33.0 MCHC 34.1 g/dL 31.5-35.7 RDW 13.0 % 12.3-15.4 Platelets 234 x10E3/uL 150-379 Neutrophils 45 % Lymphs 37 % Monocytes 11 % Eos 5 % Basos 1 % Neutrophils (Absolute) 3.1 x10E3/uL 1.4-7.0 Lymphs (Absolute) 2.5 x10E3/uL 0.7-3.1 Monocytes(Absolute) 0.8 x10E3/uL 0.1-0.9 Eos (Absolute) 0.4 x10E3/uL 0.0-0.4 Baso (Absolute) 0.1 x10E3/uL 0.0-0.2 Immature Granulocytes 1 % Immature Grans (Abs) 0.0 x10E3/uL 0.0-0.1 Comp. Metabolic Panel (14) - 04/17/16 10:59 Glucose, Serum 88 mg/dL 65-99 BUN 18 mg/dL 8-27 Creatinine, Serum 0.90 mg/dL 0.57-1.00 eGFR If NonAfricn Am 70 mL/min/1.73 >59 eGFR If Africn Am 80 mL/min/1.73 >59 BUN/Creatinine Ratio 20 11-26 Sodium, Serum 142 mmol/L 136-144 Potassium, Serum 4.6 mmol/L 3.5-5.2 Chloride, Serum 105 mmol/L 97-106 Carbon Dioxide, Total 23 mmol/L 18-29 Calcium, Serum 9.4 mg/dL 8.7-10.3 Protein, Total, Serum 7.2 g/dL 6.0-8.5 Albumin, Serum 4.4 g/dL 3.6-4.8 Globulin, Total 2.8 g/dL 1.5-4.5 A/G Ratio 1.6 1.1-2.5 Bilirubin, Total 0.3 mg/dL 0.0-1.2 Alkaline Phosphatase, S 67 IU/L 39-117 AST (SGOT) 25 IU/L 0-40 ALT (SGPT) 27 IU/L 0-32 CBC With Differential/Platelet - 10/09/16 13:57 WBC 6.3 x10E3/uL 3.4-10.8 RBC 4.40 x10E6/uL 3.77-5.28 Hemoglobin 13.4 g/dL 11.1-15.9 Hematocrit 40.0 % 34.0-46.6 MCV 91 fL 79-97 MCH 30.5 pg 26.6-33.0 MCHC 33.5 g/dL 31.5-35.7 RDW 13.2 % 12.3-15.4 Platelets 247 x10E3/uL 150-379 Neutrophils 48 % Lymphs 39 % Monocytes 8 % Eos 4 % Basos 1 % Neutrophils (Absolute) 3.0 x10E3/uL 1.4-7.0 Lymphs (Absolute) 2.5 x10E3/uL 0.7-3.1 Monocytes(Absolute) 0.5 x10E3/uL 0.1-0.9 Eos (Absolute) 0.2 x10E3/uL 0.0-0.4 Baso (Absolute) 0.1 x10E3/uL 0.0-0.2 Immature Granulocytes 0 % Immature Grans (Abs) 0.0 x10E3/uL 0.0-0.1 Comp. Metabolic Panel (14) - 10/09/16 13:57 Glucose, Serum 108 mg/dL 65-99 BUN 20 mg/dL 8-27 Creatinine, Serum 0.90 mg/dL 0.57-1.00 eGFR If NonAfricn Am 69 mL/min/1.73 >59 eGFR If Africn Am 80 mL/min/1.73 >59 BUN/Creatinine Ratio 22 12-28 Sodium, Serum 142 mmol/L 134-144 Potassium, Serum 4.1 mmol/L 3.5-5.2 Chloride, Serum 103 mmol/L 96-106 Carbon Dioxide, Total 23 mmol/L 18-29 Calcium, Serum 9.7 mg/dL 8.7-10.3 Protein, Total, Serum 7.1 g/dL 6.0-8.5 Albumin, Serum 4.6 g/dL 3.6-4.8 Globulin, Total 2.5 g/dL 1.5-4.5 A/G Ratio 1.8 1.2-2.2 Bilirubin, Total 0.3 mg/dL 0.0-1.2 Alkaline Phosphatase, S 58 IU/L 39-117 AST (SGOT) 18 IU/L 0-40 ALT (SGPT) 16 IU/L 0-32 HCV RT-PCR, Quant (Non-Graph) - 10/09/16 13:57 Hepatitis C Quantitation HCV Not Detected IU/mL Test Information: Comment HCV RT-PCR, Quant (Non-Graph) - 10/09/16 13:57 Hepatitis C Quantitation HCV Not Detected IU/mL Test Information: Comment PT panel in platelet poor plasma by coagulation assay - 12/30/16 12:46 Prothrombin time (PT) in platelet poor plasma by coagulation assay 11.9 s 12.2-14.7 INR in platelet poor plasma or blood by coagulation assay 0.9 0.8-1.4 Activated partial thromboplastin time (aPTT) in platelet poor plasma bycoagulation assay - 12/30/16 12:46 Activated partial thromboplastin time (aPTT) in platelet poor plasma bycoagulation assay 28 s 24-35 Comprehensive metabolic panel - 12/30/16 12:46 Serum or plasma sodium measurement (moles/volume) 140 mmol/L 135-145 Serum or plasma potassium measurement (moles/volume) 3.9 mmol/L 3.6-5.0 Serum or plasma chloride measurement (moles/volume) 106 mmol/L 98-107 Carbon dioxide 26 mmol/L 21-32 Serum or plasma anion gap determination (moles/volume) 8 mmol/L 5-14 Serum or plasma urea nitrogen measurement (mass/volume) 16 mg/dL 7-18 Serum or plasma creatinine measurement (mass/volume) 0.83 mg/dL 0.60-1.30 Serum or plasma urea nitrogen/creatinine mass ratio 19 NRG Serum or plasma creatinine measurement with calculation of estimated glomerular filtration rate > NRG Serum or plasma glucose measurement (mass/volume) 124 mg/dL 70-105 Serum or plasma calcium measurement (mass/volume) 9.6 mg/dL 8.5-10.1 Serum or plasma total bilirubin measurement (mass/volume) 0.4 mg/dL 0.1-1.0 Serum or plasma alkaline phosphatase measurement (enzymatic activity/volume) 70 U/L 40-136 Serum or plasma aspartate aminotransferase measurement (enzymatic activity/ volume) 21 U/L 5-34 Serum or plasma alanine aminotransferase measurement (enzymatic activity/volume ) 22 U/L 0-55 Serum or plasma protein measurement (mass/volume) 7.6 g/dL 6.4-8.2 Serum or plasma albumin measurement (mass/volume) 4.4 g/dL 3.2-4.5 Magnesium - 12/30/16 12:46 Magnesium 2.4 mg/dL 1.8-2.4 Complete blood count (CBC) with automated white blood cell (WBC) differential - 12/30/16 12:46 Blood leukocytes automated count (number/volume) 7.1 10*3/uL 4.3-11.0 Blood erythrocytes automated count (number/volume) 4.76 10*6/uL 4.35-5.85 Venous blood hemoglobin measurement (mass/volume) 14.7 g/dL 11.5-16.0 Blood hematocrit (volume fraction) 42 % 35-52 Automated erythrocyte mean corpuscular volume 88 [foz_us] 80-99 Automated erythrocyte mean corpuscular hemoglobin (mass per erythrocyte) 31 pg 25-34 Automated erythrocyte mean corpuscular hemoglobin concentration measurement ( mass/volume) 35 g/dL 32-36 Automated erythrocyte distribution width ratio 12.7 % 10.0-14.5 Automated blood platelet count (count/volume) 234 10*3/uL 130-400 Automated blood platelet mean volume measurement 9.6 [foz_us] 7.4-10.4 Automated blood neutrophils/100 leukocytes 66 % 42-75 Automated blood lymphocytes/100 leukocytes 25 % 12-44 Blood monocytes/100 leukocytes 6 % 0-12 Automated blood eosinophils/100 leukocytes 2 % 0-10 Automated blood basophils/100 leukocytes 1 % 0-10 Blood neutrophils automated count (number/volume) 4.7 10*3 1.8-7.8 Blood lymphocytes automated count (number/volume) 1.8 10*3 1.0-4.0 Blood monocytes automated count (number/volume) 0.4 10*3 0.0-1.0 Automated eosinophil count 0.2 10*3/uL 0.0-0.3 Automated blood basophil count (count/volume) 0.1 10*3/uL 0.0-0.1 Serum or plasma troponin i.cardiac measurement (mass/volume) - 12/30/16 12:46 Serum or plasma troponin i.cardiac measurement (mass/volume) < ng/ mL <0.30 Myoglobin, serum - 12/30/16 12:46 Myoglobin, serum 34.6 ng/mL 10.0-92.0 CBC With Differential/Platelet - 03/10/17 13:40 WBC 6.3 x10E3/uL 3.4-10.8 RBC 4.30 x10E6/uL 3.77-5.28 Hemoglobin 12.9 g/dL 11.1-15.9 Hematocrit 38.2 % 34.0-46.6 MCV 89 fL 79-97 MCH 30.0 pg 26.6-33.0 MCHC 33.8 g/dL 31.5-35.7 RDW 13.3 % 12.3-15.4 Platelets 292 x10E3/uL 150-379 Neutrophils 43 % Lymphs 41 % Monocytes 10 % Eos 5 % Basos 1 % Neutrophils (Absolute) 2.7 x10E3/uL 1.4-7.0 Lymphs (Absolute) 2.6 x10E3/uL 0.7-3.1 Monocytes(Absolute) 0.7 x10E3/uL 0.1-0.9 Eos (Absolute) 0.3 x10E3/uL 0.0-0.4 Baso (Absolute) 0.1 x10E3/uL 0.0-0.2 Immature Granulocytes 0 % Immature Grans (Abs) 0.0 x10E3/uL 0.0-0.1 Comp. Metabolic Panel (14) - 03/10/17 13:40 Glucose, Serum 92 mg/dL 65-99 BUN 19 mg/dL 8-27 Creatinine, Serum 0.89 mg/dL 0.57-1.00 eGFR If NonAfricn Am 70 mL/min/1.73 >59 eGFR If Africn Am 81 mL/min/1.73 >59 BUN/Creatinine Ratio 21 12-28 Sodium, Serum 143 mmol/L 134-144 Potassium, Serum 4.2 mmol/L 3.5-5.2 Chloride, Serum 104 mmol/L 96-106 Carbon Dioxide, Total 24 mmol/L 18-29 Calcium, Serum 9.5 mg/dL 8.7-10.3 Protein, Total, Serum 6.9 g/dL 6.0-8.5 Albumin, Serum 4.6 g/dL 3.6-4.8 Globulin, Total 2.3 g/dL 1.5-4.5 A/G Ratio 2.0 1.2-2.2 Bilirubin, Total 0.3 mg/dL 0.0-1.2 Alkaline Phosphatase, S 67 IU/L 39-117 AST (SGOT) 19 IU/L 0-40 ALT (SGPT) 19 IU/L 0-32 HCV RT-PCR, Quant (Non-Graph) - 03/10/17 13:40 Hepatitis C Quantitation QNS IU/mL Test Information: Comment Request Problem - 03/10/17 13:40 Request Problem TNP CBC - 03/10/17 13:40 WBC 6.3 x10E3/uL 3.4-10.8 RBC 4.30 x10E6/uL 3.77-5.28 Hemoglobin 12.9 g/dL 11.1-15.9 Hematocrit 38.2 % 34.0-46.6 MCV 89 fL 79-97 MCH 30.0 pg 26.6-33.0 MCHC 33.8 g/dL 31.5-35.7 RDW 13.3 % 12.3-15.4 Platelets 292 x10E3/uL 150-379 Neutrophils 43 % NRG Lymphs 41 % NRG Monocytes 10 % NRG Eos 5 % NRG Basos 1 % NRG Neutrophils (Absolute) 2.7 x10E3/uL 1.4-7.0 Lymphs (Absolute) 2.6 x10E3/uL 0.7-3.1 Monocytes(Absolute) 0.7 x10E3/uL 0.1-0.9 Eos (Absolute) 0.3 x10E3/uL 0.0-0.4 Baso (Absolute) 0.1 x10E3/uL 0.0-0.2 Immature Granulocytes 0 % NRG Immature Grans (Abs) 0.0 x10E3/uL 0.0-0.1 CMP - 03/10/17 13:40 Glucose, Serum 92 mg/dL 65-99 BUN 19 mg/dL 8-27 Creatinine, Serum 0.89 mg/dL 0.57-1.00 eGFR If NonAfricn Am 70 mL/min/1.73 >59 eGFR If Africn Am 81 mL/min/1.73 >59 BUN/Creatinine Ratio 21 12-28 Sodium, Serum 143 mmol/L 134-144 Potassium, Serum 4.2 mmol/L 3.5-5.2 Chloride, Serum 104 mmol/L 96-106 Carbon Dioxide, Total 24 mmol/L 18-29 Calcium, Serum 9.5 mg/dL 8.7-10.3 Protein, Total, Serum 6.9 g/dL 6.0-8.5 Albumin, Serum 4.6 g/dL 3.6-4.8 Globulin, Total 2.3 g/dL 1.5-4.5 A/G Ratio 2.0 1.2-2.2 Bilirubin, Total 0.3 mg/dL 0.0-1.2 Alkaline Phosphatase, S 67 IU/L 39-117 AST (SGOT) 19 IU/L 0-40 ALT (SGPT) 19 IU/L 0-32 HEP C PCR QUANT (Graph)-APPROVAL REQUIRED - 04/29/17 16:21 HCV RNA, QUANTITATIVE REAL TIME PCR <15 NOT DETECTED IU/mL <15 HCV RNA, QUANTITATIVE REAL TIME PCR <1.18 NOT DETECTED Log IU/mL <1.18 COMMENT NRG TSH - 07/05/17 15:27 TSH 2.78 mIU/L 0.40-4.50 Encounters ACCT No. Visit Date/Time Discharge Status Pt. Type Provider Facility Loc./Unit Complaint [id number] 10/10/2014 12:12:00 10/10/2014 23:59:59 CLS Outpatient PHI SANCHEZ APRN [id number] 08/29/2014 08:15:00 08/29/2014 23:59:59 CLS Outpatient ADRIÁN SHARP APRN [id number] 07/17/2014 16:05:00 07/17/2014 23:59:59 CLS Outpatient ADRIÁN SHARP APRN [id number] 07/11/2014 09:34:00 07/11/2014 23:59:59 CLS Outpatient ADRIÁN SHARP APRN [id number] 06/18/2014 10:58:00 06/18/2014 23:59:59 CLS Outpatient AMADA MONTELONGO APRN [id number] 02/13/2014 13:56:00 02/13/2014 23:59:59 CLS Outpatient ADRIÁN SHARP APRN S [id number] 06/19/2013 14:42:00 06/19/2013 23:59:59 CLS Outpatient WAYNE JEREZ APRN Baldo [id number] 08/11/2012 10:49:00 08/11/2012 23:59:59 CLS Outpatient ARON MENONNADRIÁN S [id number] 06/15/2012 15:01:00 06/15/2012 23:59:59 CLS Outpatient [id number] 10/20/2012 12:56:00 Document Registration [id number] 03/15/2017 08:35:00 Document Registration [email or web address] 02/20/2015 03:44:09 ACT Document Registration [id number] 10/11/2016 17:06:00 Document Registration [id number] 10/11/2016 17:06:00 Document Registration [id number] 06/17/2018 11:53:00 06/17/2018 23:59:59 CLS Preadmit ADRIÁN SHARPP [facility] RAD PAIN IN LEFT KNEE [id number] 03/31/2018 10:04:00 03/31/2018 23:59:59 CLS Preadmit ADRIÁN SHARPP [facility] RAD SCREENING [id number] 01/07/2017 08:26:00 01/07/2017 23:59:59 CLS Outpatient ULYSSES MURILLO MD [facility] RAD G43.A0 NON-INTRACTABLE CYCLICAL VOMITTING [id number] 12/30/2016 10:27:00 12/30/2016 14:01:00 DIS Emergency ROCHELLE HERRERA VETERINARY ANATOMIST [facility] ER N/V, ARM PAIN, CHEST DISCOMFORT A MONTH AGO [id number] 02/19/2015 07:49:00 02/19/2015 10:20:00 DIS Outpatient [facility] [id number] 07/11/2014 08:34:00 07/11/2014 23:59:59 CLS Outpatient AMADA MONTELONGO APRN [facility] RAD [id number] 06/27/2014 10:23:00 Document Registration [id number] 07/08/2010 14:20:00 Document Registration [id number] 04/18/2016 08:07:00 Document Registration [id number] 06/13/2018 15:40:00 06/13/2018 23:59:59 CLS Outpatient ADRIÁN SHARP APRN [facility] [id number] 07/05/2017 14:40:00 Document Registration [id number] 04/29/2017 15:30:00 Document Registration [id number] 03/10/2017 13:20:00 Document Registration
[2018-06-22 16:08] LABS: BASOPHILS # (AUTO) 0.1 10^3/uL (0.0-0.1); BASOPHILS % (AUTO) 3 % (0-10); EOSINOPHILS # (AUTO) 0.1 10^3/uL (0.0-0.3); EOSINOPHILS % (AUTO) 2 % (0-10); HEMATOCRIT 42 % (35-52); HEMOGLOBIN 15.2 G/DL (11.5-16.0); LYMPHOCYTES # (AUTO) 1.4 X 10^3 (1.0-4.0); LYMPHOCYTES % (AUTO) 28 % (12-44); MEAN CORPUSCULAR HEMOGLOBIN 31 PG (25-34); MEAN CORPUSCULAR HGB CONC 36 G/DL (32-36); MEAN CORPUSCULAR VOLUME 86 FL (80-99); MEAN PLATELET VOLUME 9.8 FL (7.4-10.4); MONOCYTES # (AUTO) 1.1 X 10^3 (0.0-1.0); MONOCYTES % (AUTO) 22 % (0-12); NEUTROPHILS # (AUTO) 2.3 X 10^3 (1.8-7.8); NEUTROPHILS % (AUTO) 45 % (42-75); PLATELET COUNT 147 10^3/uL (130-400); RED BLOOD COUNT 4.96 10^6/uL (4.35-5.85); RED CELL DISTRIBUTION WIDTH 13.4 % (10.0-14.5)
[2018-06-22 16:28] LABS: ALBUMIN 4.5 GM/DL (3.2-4.5); BILIRUBIN,TOTAL 0.7 MG/DL (0.1-1.0); CALCIUM 9.6 MG/DL (8.5-10.1); CREATININE SERUM 1.06 MG/DL (0.60-1.30); POTASSIUM 3.5 MMOL/L (3.6-5.0); TOTAL PROTEIN 7.5 GM/DL (6.4-8.2)
[2018-06-22 16:43] LABS: BAND NEUTROPHILS 25 %; BASOPHILS % (MANUAL) 1 %; EOSINOPHILS % (MANUAL) 3 %; LYMPHOCYTES % (MANUAL) 32 %; MONOCYTES % (MANUAL) 17 %; NEUTROPHILS % (MANUAL) 22 %; RBC MORPH NORMAL
[2018-06-22 16:57] LABS: BILIRUBIN,URINE NEGATIVE (NEGATIVE); CLARITY,URINE SLIGHTLY CLOUDY; COLOR,URINE AMBER; GLUCOSE, URINE (UA) NEGATIVE (NEGATIVE); KETONES,URINE 2+ (NEGATIVE); LEUKOCYTE ESTERASE ,URINE 2+ (NEGATIVE); NITRITE,URINE NEGATIVE (NEGATIVE); PH,URINE 5 (5-9); PROTEIN,URINE 1+ (NEGATIVE); UROBILINOGEN,URINE NORMAL (NORMAL)
[2018-06-22 17:04] LABS: BACTERIA,URINE FEW /HPF
--- NOTE | 2018-06-22 17:10 | ED Abdominal Pain ---
General Chief Complaint: Abdominal/GI Problems Stated Complaint: N/V;DEHYDRATION;WEAKNESS Nursing Triage Note: Pt reports inflammation and lethargy since 06/17, pt reports running fever through weekend. Pt now c/o feeling dehydrated and unable to keep any food/ drink down. Sepsis Screen: No Definite Risk Source of Information: Patient Exam Limitations: No Limitations History of Present Illness Date Seen by Provider: Jun 22, 2018 Time Seen by Provider: 17:00 Allergies and Home Medications Allergies Coded Allergies: ciprofloxacin (Verified Allergy, Unknown, 06/22/18) tendon problems Home Medications Hydrochlorothiazide 25 Mg Tablet, 25 MG PO DAILY, (Reported) Past Pdxxwcv-Kjjahw-Joahlr Hx Patient Social History Alcohol Use: Denies Use Recreational Drug Use: No Smoking Status: Former Smoker Former Smoker, Quit: Jan 13, 2015 Recent Foreign Travel: No Contact w/Someone Who Travel: No Recent Infectious Disease Expo: No Recent Hopitalizations: No Seasonal Allergies Seasonal Allergies: No Past Medical History Surgeries: Yes (r shoulder) Orthopedic Respiratory: No Cardiac: Yes Chronic Edema/Swelling, Hypertension Neurological: No Genitourinary: No Gastrointestinal: Yes Irritable Bowel Musculoskeletal: Yes Arthritis Endocrine: No HEENT: No Cancer: No Psychosocial: No Integumentary: No Blood Disorders: No Physical Exam Vital Signs Vital Signs - First Documented 06/22/18 14:34 Temp 98.6 Pulse 91 Resp 18 B/P (MAP) 147/84 (105) Pulse Ox 96 O2 Delivery Room Air Capillary Refill : Less Than 3 Seconds Height/Weight/BMI Height: 5'8.00" Weight: 224lbs. 0.0oz. 101.401470xi; 34.45 BMI Method:Stated Progress/Results/Core Measures Results/Orders Lab Results Laboratory Tests Test 06/22/18 15:59 06/22/18 16:49 Range/Units White Blood Count 5.0 4.3-11.0 10^3/uL Red Blood Count 4.96 4.35-5.85 10^6/uL Hemoglobin 15.2 11.5-16.0 G/DL Hematocrit 42 35-52 % Mean Corpuscular Volume 86 80-99 FL Mean Corpuscular Hemoglobin 31 25-34 PG Mean Corpuscular Hemoglobin Concent 36 32-36 G/DL Red Cell Distribution Width 13.4 10.0-14.5 % Platelet Count 147 130-400 10^3/uL Mean Platelet Volume 9.8 7.4-10.4 FL Neutrophils (%) (Auto) 45 42-75 % Lymphocytes (%) (Auto) 28 12-44 % Monocytes (%) (Auto) 22 H 0-12 % Eosinophils (%) (Auto) 2 0-10 % Basophils (%) (Auto) 3 0-10 % Neutrophils # (Auto) 2.3 1.8-7.8 X 10^3 Lymphocytes # (Auto) 1.4 1.0-4.0 X 10^3 Monocytes # (Auto) 1.1 H 0.0-1.0 X 10^3 Eosinophils # (Auto) 0.1 0.0-0.3 10^3/uL Basophils # (Auto) 0.1 0.0-0.1 10^3/uL Neutrophils % (Manual) 22 % Lymphocytes % (Manual) 32 % Monocytes % (Manual) 17 % Eosinophils % (Manual) 3 % Basophils % (Manual) 1 % Band Neutrophils 25 % Blood Morphology Comment NORMAL Sodium Level 136 135-145 MMOL/L Potassium Level 3.5 L 3.6-5.0 MMOL/L Chloride Level 99 98-107 MMOL/L Carbon Dioxide Level 26 21-32 MMOL/L Anion Gap 11 5-14 MMOL/L Blood Urea Nitrogen 22 H 7-18 MG/DL Creatinine 1.06 0.60-1.30 MG/DL Estimat Glomerular Filtration Rate 53 BUN/Creatinine Ratio 21 Glucose Level 112 H 70-105 MG/DL Calcium Level 9.6 8.5-10.1 MG/DL Corrected Calcium 9.2 8.5-10.1 MG/DL Total Bilirubin 0.7 0.1-1.0 MG/DL Aspartate Amino Transf (AST/SGOT) 70 H 5-34 U/L Alanine Aminotransferase (ALT/SGPT) 67 H 0-55 U/L Alkaline Phosphatase 54 40-136 U/L Total Protein 7.5 6.4-8.2 GM/DL Albumin 4.5 3.2-4.5 GM/DL Amylase Level 72 25-125 U/L Lipase 72 8-78 U/L Urine Color KAUSHAL H Urine Clarity SLIGHTLY CLOUDY Urine pH 5 5-9 Urine Specific [place] 1.025 H 1.016-1.022 Urine Protein 1+ H NEGATIVE Urine Glucose (UA) NEGATIVE NEGATIVE Urine Ketones 2+ H NEGATIVE Urine Nitrite NEGATIVE NEGATIVE Urine Bilirubin NEGATIVE NEGATIVE Urine Urobilinogen NORMAL NORMAL MG/DL Urine Leukocyte Esterase 2+ H NEGATIVE Urine RBC (Auto) 3+ H NEGATIVE Urine RBC 2-5 H /HPF Urine WBC 2-5 /HPF Urine Squamous Epithelial Cells 5-10 /HPF Urine Crystals NONE /LPF Urine Bacteria FEW H /HPF Urine Casts NONE /LPF Urine Mucus MODERATE H /LPF Urine Culture Indicated NO My Orders Orders - JERRI JACKMAN Comprehensive Metabolic Panel (06/22/18 15:32) Lipase (06/22/18 15:32) Amylase (06/22/18 15:32) Ua Culture If Indicated (06/22/18 15:32) Saline Lock/Iv-Start (06/22/18 15:32) Cbc With Automated Diff (06/22/18 15:32) Ns Iv 1000 Ml (Sodium Chloride 0.9%) (06/22/18 16:00) Ondansetron Injection (Zofran Injectio (06/22/18 16:00) Manual Differential (06/22/18 15:59) Lactated Ringers (Lr 1000 Ml Iv Solution (06/22/18 17:00) Medications Given in ED Current Medications Medications Dose Ordered Sig/Mohamud Route Start Time Stop Time Status Last Admin Dose Admin Ondansetron HCl 4 mg ONCE ONCE IVP 06/22/18 16:00 06/22/18 16:01 DC 06/22/18 16:03 4 MG Vital Signs/I&O 06/22/18 14:34 Temp 98.6 Pulse 91 Resp 18 B/P (MAP) 147/84 (105) Pulse Ox 96 O2 Delivery Room Air Blood Pressure Mean: 105 Departure Impression Primary Impression: Nausea and vomiting Disposition: HOME, SELF-CARE Condition: Stable/Unchanged Departure-Patient Inst. Referrals: ADRIÁN SHARP (PCP) Primary Care Physician ULYSSES MURILLO MD (Family) Primary Care Physician Patient Instructions: Nausea and Vomiting, Adult (DC) Add. Discharge Instructions: Take medications as directed. Clear liquid diet and advance as tolerated. Follow -up with her primary care provider within 1 week for recheck. Return back to the emergency room for any worsening symptoms or concerns as needed. All discharge instructions reviewed with patient and/or family. Voiced understanding. Scripts Ondansetron HCl (Zofran) 4 Mg Tab 4 MG PO Q4H, #14 TAB Prov: JERRI JACKMAN 06/22/18 JERRI JACKMAN Jun 22, 2018 17:09
== END | disposition home or self-care (01) ==
LOC: EDUNIT# 13:59 → ER 14:00
DX: R11.2 Nausea with vomiting, unspecified (principal); I10 Essential (primary) hypertension; Z87.19 Personal history of other diseases of the digestive system; Z87.891 Personal history of nicotine dependence; Z88.1 Allergy status to other antibiotic agents
CPT/HCPCS: 36415; 80053; 81000; 82150; 83690; 85007; 85027; 96361; 96374

== ENCOUNTER 2018-06-30 11:25 | Emergency (ER) | payer MEDICARE | END 2018-06-30 13:45 | disposition home or self-care (01) | LOC: ER 11:25 ==

== ENCOUNTER → 2018-07-15 | Outpatient (CLI) | payer MEDICARE ==
[~2018-07-15] MED LIST changes: -LACTATED RINGERS 1,000 ML IV SCH; -NS IV 1000 ML 1,000 ML IV SCH; -ONDANSETRON 4 MG/2 ML (SDV) Z0FRAN IVP ONE
--- NOTE | 2018-07-16 08:12 | Diagnostic Imaging Report ---
PROCEDURE: MRI left joint lower extremity without contrast. TECHNIQUE: Multiplanar, multisequence non contrast-enhanced MRI of the left lower extremity was accomplished. INDICATION: Trauma to the left knee, old injury, chronic left knee pain. COMPARISON: Radiographs from 01/05/2009 FINDINGS: No acute fracture is seen in the left knee. There is mild lateral translation of the tibia with respect to the femur, which is likely chronic. There are mild tricompartmental degenerative changes in the left knee, most notable in the medial compartment. A small simple-appearing T2 bright lesion in the proximal tibia measuring approximately 8 mm in diameter may represent a simple cyst or small enchondroma. This has nonaggressive features. No significant joint effusion is seen. The articular cartilage in the patellofemoral compartment demonstrates mild heterogeneity and surface irregularity. The articular cartilage in the medial compartment demonstrates a small full-thickness defect measuring approximately 4 mm transverse. The articular cartilage in the lateral compartment demonstrates mild thinning, heterogeneity and surface irregularity. There appears to be a radial tear of the medial meniscus involving the free edge. There is thinning of the posterior horn of the medial meniscus as well. The lateral meniscus appears intact. The anterior cruciate ligament is completely torn. The posterior cruciate ligament appears mildly redundant, but intact. The medial collateral ligament appears intact. The lateral collateral ligamentous complex appears intact. The medial and lateral retinacula are intact. The extensor mechanism is intact. There is a small García's cyst with a 5 mm joint body present. IMPRESSION: 1. Complete tear of the anterior cruciate ligament in the left knee. Tearing of the medial meniscus as well. 2. Tricompartmental degenerative changes and cartilage loss, most notable at the medial compartment. 3. Small García's cyst with a small joint body. 3. Subcentimeter lesion in the proximal tibia may represent a simple cyst or possibly small enchondroma. This has nonaggressive features. Dictated by: Dictated on workstation # [id number]
== END ==
LOC: RAD 15:27
PROVIDERS: ATTEND Nurse Practitioner Community Health
DX: S83.512A Sprain of anterior cruciate ligament of left knee, initial encounter (principal); S83.242A Other tear of medial meniscus, current injury, left knee, initial encounter; M17.12 Unilateral primary osteoarthritis, left knee; M71.22 Synovial cyst of popliteal space [Baker], left knee; M89.9 Disorder of bone, unspecified
CPT/HCPCS: 73721

== ENCOUNTER → 2019-03-17 | Outpatient (CLI) | payer MEDICARE ==
--- NOTE | 2019-03-17 11:05 | Diagnostic Imaging Report ---
INDICATION: Osteoarthritis of the left knee. TIME OF EXAM: 10:17 AM 3 views left knee were obtained. FINDINGS: There is mild medial compartmental degenerative change. Very slight joint space narrowing and marginal spurring is present. The lateral and patellofemoral compartments are intact. No fracture, dislocation or effusion is seen. IMPRESSION: Mild medial compartmental degenerative change. No acute bony abnormality is detected. Dictated by: Dictated on workstation # [id number]
== END ==
LOC: ORTHO 09:57
PROVIDERS: ATTEND Orthopaedic Surgery
DX: M23.50 Chronic instability of knee, unspecified knee (principal); M65.862 Other synovitis and tenosynovitis, left lower leg; M17.12 Unilateral primary osteoarthritis, left knee
CPT/HCPCS: 73562; 99203

== ENCOUNTER → 2019-07-10 | Outpatient (CLI) | payer MEDICARE | END | disposition home or self-care (01) | LOC: PREOP 05:33 | PROVIDERS: ATTEND Surgery | DX: Z01.818 Encounter for other preprocedural examination (principal) ==